=== PATIENT | female | born 1950 | race Caucasian/White ===

== ENCOUNTER 2016-10-12 18:41 | Inpatient (IN) ==
[~2016-10-12 18:41] MED LIST: *HR* Etomidate 20 MG/10 ML AMPUL IVP ONE; *HR* Midazolam HCl 5 MG/5 ML VIAL IVP ONE; *HR* Rocuronium Bromide 50 MG/5 ML VIAL IVC ONE
--- NOTE | 2016-10-12 19:06 | Emergency Department Note ---
START Narrative - START START: I examined this patient and my medical decision-making was reviewed with the TOOL MAKER/PA/Advanced Practice Nurse/Resident Physician. I agree with the documented findings, disposition and treatment plan as described except to the extent set forth below.
[2016-10-12] MEDS ORDERED: Ipratropium/Albuterol Neb 3 ML IH ONE ×2 (19:10→20:07)
[2016-10-12] MEDS ORDERED: Ipratropium/Albuterol Neb 3 ML ONE (19:12)
--- NOTE | 2016-10-12 19:14 | Emergency Department Note ---
Disposition Clinical Impression: Community acquired pneumonia, Hypoxia Leukocytosis Qualifiers: Leukocytosis type: unspecified Qualified Code(s): D72.829 - Elevated white blood cell count, unspecified Disposition: Admitted As Inpatient Condition: Fair Referrals: NO,PCP [Non-Partnered Physician] - Forms: ED Satisfaction Letter SOB HPI - General Chief Complaint: ED Shortness of Breath/Dyspnea Stated Complaint: BRIAN, dizzy Time Seen by Provider: 10/12/16 18:55 Source: patient, EMS Mode of arrival: EMS Limitations: no limitations Nursing Notes Reviewed: Yes Vital Signs Reviewed: Yes - History of Present Illness 66-year-old female history of diabetes, hypertension who presents to the ER via EMS due to dizziness. Patient reports that she has not felt well for the last 2 -3 days. She states that when she was standing up and walking around she felt dizzy like she was going to pass out. Family called EMS today because of how she was acting. Patient states that she has felt dizzy worse today with a headache. She denies any chest pain or shortness of breath. No recent illnesses, fevers, chills, cough. Upon arrival patient was hypoxic at 75%. Patient was placed on a nonrebreather with improvement to the low 90s. We will continue to monitor closely and will place the patient on BiPAP if continued hypoxia. Pt Subjective Complaint: shortness of breath Onset (ago): day(s) Severity: severe Consistency/Duration: constant Improves with: nothing Worsens with: nothing Associated symptoms: Reports: other (Dizziness). Denies: chest pain, fever, cough, lower extremity pain, nausea/vomiting Treatment prior to arrival: oxygen Cough present: No Sputum production: No - Related Data Home oxygen amount: none Home Medications Medication Instructions Recorded Confirmed Amlodipine [Amlodipine Besylate] 10 mg PO QAM 09/06/15 09/06/15 Cholecalciferol (Vitamin D3) 10,000 unit PO 2XW PRN 09/06/15 09/06/15 [Vitamin D3] GlipiZIDE XL (24 HR) [Glucotrol XL] 5 mg PO QPM 09/06/15 09/06/15 Hydrochlorothiazide 25 mg PO QAM 09/06/15 09/06/15 Levothyroxine [Synthroid] 100 mcg PO QAM 09/06/15 09/06/15 Metformin HCl [Fortamet] 500 mg PO BID 09/06/15 09/06/15 Metoprolol [Lopressor] 100 mg PO BID 09/06/15 09/06/15 Naproxen [Naprosyn] 500 mg PO BID 09/06/15 09/06/15 Potassium Chloride [Klor-Con 10 meq PO QAM 09/06/15 09/06/15 Sprinkle] Simvastatin [Zocor] 40 mg PO QPM 09/06/15 09/06/15 Previous Rx's Medication Instructions Recorded PredniSONE [Prednisone] 60 mg PO DAILY #18 tablet 09/07/15 Valacyclovir [Valtrex] 1,000 mg PO TID #18 tablet 09/07/15 Allergies Allergy/AdvReac Type Severity Reaction Status Date / Time benazepril Allergy Swelling Verified 09/06/15 14:23 of the Eye All systems ED: reviewed and negative except as stated. Constitutional: Denies: fever Cardiovascular: Denies: chest pain Respiratory: Reports: dyspnea. Denies: cough Gastrointestinal: Denies: abdominal pain, nausea, vomiting, diarrhea Neurological: Reports: headache, other (Dizziness) Past Medical History - Past Medical History Attestation: Yes The following information was validated with the patient. Source: patient Medical history: Reports: diabetes, hyperlipidemia, hypertension, thyroid disease Surgical history: Reports: no surgical history Psychiatric history: Reports: no psych history - Social History Smoking Status: Never smoker Alcohol use: Reports: none Drug use: Reports: none Physical Exam - General Limitations: no limitations General appearance: alert, in distress - Head Head exam: atraumatic, normocephalic, normal inspection - Eye Eye exam: Present: normal appearance, EOMI - ENT ENT exam: normal exam - Neck Neck exam: Present: normal inspection - Chest Chest inspection: Present: normal inspection, symmetric chest wall rise - Respiratory Respiratory exam: Present: other (Diminished breath sounds bilaterally) - Cardiovascular Cardiovascular exam: Present: regular rate, normal rhythm, normal heart sounds - Abdominal Exam Abdominal exam: Present: soft, Non-Tender. Absent: tenderness - Extremities Exam Extremities exam: Present: normal inspection, full ROM. Absent: pedal edema - Expanded Upper Extremity Exam Shoulder exam: Present: normal inspection, full ROM Arm exam: Present: normal inspection, full ROM Elbow exam: Present: normal inspection, full ROM Forearm/Wrist exam: Present: normal inspection, full ROM Hand exam: Present: normal inspection, full ROM - Expanded Lower Extremity Exam Hip/Pelvis exam: Present: normal inspection, full ROM Upper leg exam: Present: normal inspection, full ROM Knee exam: Present: normal inspection, full ROM Lower leg exam: Present: normal inspection, full ROM Ankle exam: Present: normal inspection, full ROM Foot/toe exam: Present: normal inspection, full ROM - Neurological Exam Neurological exam: Present: alert - Psychiatric Psychiatric exam: Present: normal affect, normal mood - Skin Skin exam: Present: warm, dry, intact, normal color Course Course Narrative: Patient seen and examined. Vital signs reviewed. She is hypoxic on room air at 75%. Patient was placed on a nonrebreather with improvement in the low 90s. ABG obtained a breathing treatment will be given. We will also get an EKG, chest x-ray, labs including troponin, d-dimer and carboxyhemoglobin. Continue to monitor closely. Disposition pending. - Reevaluation(s) Reevaluation #1: Discussed results of lab work and imaging with the patient. Her d-dimer was elevated and I discussed getting a CTA of the chest with her. She is agreeable. Vital Signs Temperature 97.7 F 10/12/16 18:48 Pulse Rate 75 10/12/16 18:48 Respiratory Rate 20 10/12/16 18:48 Blood Pressure 135/76 10/12/16 18:48 O2 Sat by Pulse Oximetry 60 L 10/12/16 18:48 Temperature 97.7 F 10/12/16 18:48 Pulse Rate 72 10/12/16 18:54 Respiratory Rate 24 10/12/16 20:45 Blood Pressure 135/76 10/12/16 18:54 O2 Sat by Pulse Oximetry 93 L 10/12/16 20:45 Oxygen Delivery Oxygen Delivery Non Rebreather Mask Shortness of Breath/Dyspnea - MDM Narrative Medical decision making narrative: 66-year-old female history of hypertension, hyperlipidemia, diabetes who presents to the ER via EMS due to hypoxia and dizziness. Here patient's EKG shows T-wave inversions that are unchanged from her previous. She was initially hypoxic in the 70s on room air which improved with a nonrebreather to the mid 90s. Her chest x-ray shows concern for multifocal pneumonia. Her d- dimer was elevated and a CTA was obtained which is read by radiology as no PE but scattered groundglass opacities consistent with her chest x-ray earlier. She has a white count of 18. Patient given a couple breathing treatments here. Treated for community acquired pneumonia with Rocephin and Zithromax. Admitted to the hospitalist service for further management. - Lab Data Lab results reviewed: Yes I reviewed the patient's lab results. Result diagrams: 10/12/16 19:00 10/12/16 19:00 Lab Results 10/12/16 10/12/16 10/12/16 Range/Units 18:57 19:00 19:00 WBC 18.1 H (4.3-11.1) K/mcL RBC 4.49 (3.82-4.97) M/mcL Hgb 9.8 L (11.5-15.4) g/dL Hct 33.0 L (35.3-44.9) % MCV 73.5 L (83.0-100.0) fL MCH 21.8 L (28.0-33.3) pg MCHC 29.7 L (31.6-35.5) g/dL RDW 16.5 H (11.5-14.5) % Plt Count 406 H (140-400) K/mcL MPV 9.6 (9.4-12.4) fL Immature Gran % 1.4 (0-4) % Seg Neutrophils % 89.9 % Lymphocytes % 2.9 % Monocytes % 4.5 % Eosinophils % 1.0 % Basophils % 0.3 % Neutrophils # 16.3 H (1.6-8.9) K/mcL Lymphocytes # 0.5 L (0.6-4.6) K/mcL Monocytes # 0.8 (0.0-1.3) K/mcL Eosinophils # 0.2 (0.0-0.6) K/mcL Basophils # 0.1 (0.0-0.2) K/mcL D-Dimer 836 H (0-500) ng/mLFEU ABG pH (7.32-7.45) pH Units ABG pCO2 (35-45) mmHg ABG pO2 (85-104) mmHg ABG HCO3 (21-27) mEQ/L ABG Total CO2 (20-26) mEq/L ABG O2 Saturation (95-98) % ABG Base Excess (-2.0 to 3.0) mEq/L Carboxyhemoglobin (0-5) % Blood Gas Modality Inspired O2 % Sodium (136-145) mEq/L Potassium (3.5-4.5) mEq/L Chloride (98-109) mEq/L Carbon Dioxide (19-29) mEq/L BUN (7-20) mg/dL Creatinine (0.57-1.11) mg/dL Est GFR ( Amer) (> 60) Est GFR (Non-Af Amer) (> 60) BUN/Creatinine Ratio (6-26) Glucose (70-99) mg/dL POC Glucose 189 H (58-89) Calculated Osmolality (280-300) Lactic Acid (0.5-2.2) mmol/L Calcium (8.6-10.8) mg/dL Troponin I (0-0.03) ng/mL B-Natriuretic Peptide (0-100) pg/mL 10/12/16 10/12/16 10/12/16 Range/Units 19:00 19:00 19:00 WBC (4.3-11.1) K/mcL RBC (3.82-4.97) M/mcL Hgb (11.5-15.4) g/dL Hct (35.3-44.9) % MCV (83.0-100.0) fL MCH (28.0-33.3) pg MCHC (31.6-35.5) g/dL RDW (11.5-14.5) % Plt Count (140-400) K/mcL MPV (9.4-12.4) fL Immature Gran % (0-4) % Seg Neutrophils % % Lymphocytes % % Monocytes % % Eosinophils % % Basophils % % Neutrophils # (1.6-8.9) K/mcL Lymphocytes # (0.6-4.6) K/mcL Monocytes # (0.0-1.3) K/mcL Eosinophils # (0.0-0.6) K/mcL Basophils # (0.0-0.2) K/mcL D-Dimer (0-500) ng/mLFEU ABG pH (7.32-7.45) pH Units ABG pCO2 (35-45) mmHg ABG pO2 (85-104) mmHg ABG HCO3 (21-27) mEQ/L ABG Total CO2 (20-26) mEq/L ABG O2 Saturation (95-98) % ABG Base Excess (-2.0 to 3.0) mEq/L Carboxyhemoglobin (0-5) % Blood Gas Modality Inspired O2 % Sodium 136 (136-145) mEq/L Potassium 4.1 (3.5-4.5) mEq/L Chloride 100 (98-109) mEq/L Carbon Dioxide 24 (19-29) mEq/L BUN 16 (7-20) mg/dL Creatinine 0.99 (0.57-1.11) mg/dL Est GFR ( Amer) > 60 (> 60) Est GFR (Non-Af Amer) 56 L (> 60) BUN/Creatinine Ratio 16 (6-26) Glucose 182 H (70-99) mg/dL POC Glucose (58-89) Calculated Osmolality 288 (280-300) Lactic Acid 2.0 (0.5-2.2) mmol/L Calcium 9.3 (8.6-10.8) mg/dL Troponin I 0.04 H* (0-0.03) ng/mL B-Natriuretic Peptide (0-100) pg/mL 10/12/16 10/12/16 Range/Units 19:00 19:05 WBC (4.3-11.1) K/mcL RBC (3.82-4.97) M/mcL Hgb (11.5-15.4) g/dL Hct (35.3-44.9) % MCV (83.0-100.0) fL MCH (28.0-33.3) pg MCHC (31.6-35.5) g/dL RDW (11.5-14.5) % Plt Count (140-400) K/mcL MPV (9.4-12.4) fL Immature Gran % (0-4) % Seg Neutrophils % % Lymphocytes % % Monocytes % % Eosinophils % % Basophils % % Neutrophils # (1.6-8.9) K/mcL Lymphocytes # (0.6-4.6) K/mcL Monocytes # (0.0-1.3) K/mcL Eosinophils # (0.0-0.6) K/mcL Basophils # (0.0-0.2) K/mcL D-Dimer (0-500) ng/mLFEU ABG pH 7.42 (7.32-7.45) pH Units ABG pCO2 41 (35-45) mmHg ABG pO2 67 L (85-104) mmHg ABG HCO3 26.6 (21-27) mEQ/L ABG Total CO2 27.9 H (20-26) mEq/L ABG O2 Saturation 93 L (95-98) % ABG Base Excess 1.9 (-2.0 to 3.0) mEq/L Carboxyhemoglobin 2.1 (0-5) % Blood Gas Modality NRB MASK Inspired O2 100 % Sodium (136-145) mEq/L Potassium (3.5-4.5) mEq/L Chloride (98-109) mEq/L Carbon Dioxide (19-29) mEq/L BUN (7-20) mg/dL Creatinine (0.57-1.11) mg/dL Est GFR ( Amer) (> 60) Est GFR (Non-Af Amer) (> 60) BUN/Creatinine Ratio (6-26) Glucose (70-99) mg/dL POC Glucose (58-89) Calculated Osmolality (280-300) Lactic Acid (0.5-2.2) mmol/L Calcium (8.6-10.8) mg/dL Troponin I (0-0.03) ng/mL B-Natriuretic Peptide 34 (0-100) pg/mL - Radiology Data Radiology results reviewed: Yes I reviewed the patient's radiology results. Chest X-Ray 10/12/16 18:55 IMPRESSION: Diffuse patchy bilateral airspace opacities may reflect multifocal pneumonia. Follow-up to resolution recommended. Stable cardiomegaly. D/ / 10/12/2016 19:31:29 Philip Magaña MD / Margarita Klein Interpreting Provider: Philip Magaña MD Chest CTA 10/12/16 19:57 IMPRESSION: Negative study for pulmonary embolism. Scattered airspace consolidations and mild surrounding ground-glass opacities to the lungs bilaterally correlating with findings on chest x-ray earlier today. These likely reflect multifocal infectious or inflammatory infiltrates. Follow-up to resolution recommended. D/ / 10/12/2016 20:49:00 Philip Magaña MD / Margarita Klein Interpreting Provider: Philip Magaña MD - EKG Data EKG attestation: Yes I reviewed and interpreted this EKG. EKG results narrative: EKG demonstrates normal sinus rhythm with a rate of 71 bpm. Normal axis. IN interval 155 QRS duration 98 QTc 11/22 T-wave inversions in leads V1 through V5, leads 3 unchanged from her previous EKG. No ST elevations or depressions. No acute ischemic findings. No significant changes from previous EKG dated 09/06/15. S.B.Andrea - [place] Situation: Demographics, MOA Background: Presenting Complaint, Relevant PMH, Meds, & Allergies Assessment: Vital Signs, Course and respsone to treatment, Exam Concerns, Patient/Family Expectation, Pertinant Lab Results, Outstanding Labs Recommendation: Barrier(s) to disposition, Recommendation based on pending studies, treatments, or consults S.B.A.Mari Report Given to: Dr. Jimmy Panchal Repor Time: 21:27
[2016-10-12 19:16] LABS: ABG Base Excess 1.9 mEq/L (-2.0 to 3.0); ABG HCO3 26.6 mEQ/L (21-27); ABG Oxygen Saturation 93 % (95-98); ABG PCO2 41 mmHg (35-45); ABG PH 7.42 pH Units (7.32-7.45); ABG PO2 67 mmHg (85-104); ABG TCO2 27.9 mEq/L (20-26); Carboxyhemoglobin 2.1 % (0-5)
[2016-10-12 19:17] LABS: Basophils # 0.1 K/mcL (0.0-0.2); Basophils % 0.3 %; Eosinophils # 0.2 K/mcL (0.0-0.6); Hemoglobin 9.8 g/dL (11.5-15.4); Immature Granulocytes % 1.4 % (0-4); Lymphocytes # 0.5 K/mcL (0.6-4.6); Lymphocytes % 2.9 %; Mean Corpuscular HGB Conc 29.7 g/dL (31.6-35.5); Mean Corpuscular Hemoglobin 21.8 pg (28.0-33.3); Mean Corpuscular Volume 73.5 fL (83.0-100.0); Mean Platelet Volume 9.6 fL (9.4-12.4); Monocytes # 0.8 K/mcL (0.0-1.3); Monocytes % 4.5 %; Neutrophils # 16.3 K/mcL (1.6-8.9); Platelet Count 406 K/mcL (140-400); Red Blood Count 4.49 M/mcL (3.82-4.97); Red Cell Distribution Width 16.5 % (11.5-14.5); Segmented Neutrophils % 89.9 %
[2016-10-12 19:19] LABS: Blood Gas FiO2 100 %
[2016-10-12 19:28] LABS: BUN/Creatinine Ratio 16 (6-26); Blood Urea Nitrogen 16 mg/dL (7-20); Calcium 9.3 mg/dL (8.6-10.8); Carbon Dioxide 24 mEq/L (19-29); Chloride 100 mEq/L (98-109); Glucose 182 mg/dL (70-99); Osmolality,Calculated 288 (280-300); Potassium 4.1 mEq/L (3.5-4.5); Sodium 136 mEq/L (136-145); eGFR For African Americans > 60 (> 60); eGFR For Non-African Americans 56 (> 60)
[2016-10-12] MEDS ORDERED: Azithromycin 500 MG in D5% in Water 250 ML IVPB ONE (20:07)
[2016-10-12] MEDS ORDERED: Furosemide 20 MG/2 ML VIAL IVP STA (23:37)
[2016-10-12] MEDS ORDERED: Naloxone 0.4 MG/ML INJ IVP PRN (23:48)
[2016-10-12] MEDS ORDERED: Ipratropium/Albuterol Neb 3 ML IH PRN (23:51)
--- NOTE | 2016-10-13 00:02 | Internal Med History&Physical ---
Date of Encounter: 10/12/16 Time of Encounter: 23:30 Assessment and Plan (1) Acute respiratory failure with hypoxemia Current visit: Yes Status: Acute I have personally reviewed the chest x-ray and CT scan of chest. The personal review, I suspect pulmonary edema (cardiogenic versus non-cardiogenic) more likely compared to pneumonia. A trial of Lasix given is given. BNP is not elevated. Will check CRP. Will repeat CXR in the morning. (2) Multifocal pneumonia Current visit: Yes Status: Acute Imaging reports multifocal pneumonia. But on my personal review of imaging, I suspect pulmonary edema (cardiogenic versus non-cardiogenic) is more likely. A trial of lasix. Check CRP. Repeat CXR. Will continue the antibiotics. check sputum cultures. Will get influenza screen. (3) DM2 (diabetes mellitus, type 2) Current visit: Yes Status: Chronic Start insulin sliding scale Qualifiers: Diabetes mellitus complication status: without complication Diabetes mellitus termination clerk insulin use: without fdc use Qualified Code(s): E11.9 - Type 2 diabetes mellitus without complications (4) HTN (hypertension) Current visit: Yes Status: Chronic Hold antihypertensive in the acute phase Qualifiers: Hypertension type: essential hypertension Qualified Code(s): I10 - Essential (primary) hypertension (5) Hypothyroidism Current visit: Yes Status: Chronic Continue synthroid Qualifiers: Hypothyroidism type: unspecified Qualified Code(s): E03.9 - Hypothyroidism , unspecified (6) Leukocytosis Current visit: Yes Status: Acute Likely secondary to stress response versus pneumonia. Monitor WBC count. Check CRP Qualifiers: Leukocytosis type: unspecified Qualified Code(s): D72.829 - Elevated white blood cell count, unspecified (7) DVT prophylaxis Current visit: Yes Status: Acute SubQ Heparin Internal Medicine - H&P: HPI Chief complaint: Shortness of breath Admitted From: Emergency Dept Plans for Post Hospital Care: Home History of present illness: Ms. Perez is a 66 year old female with history of diabetes, hypertension, hypothyroidism, hyperlipidemia - presents with 3 days h/o "not feeling well". She reports feeling dizzy. She reports her shortness of breath at rest. She reports a dry cough. She denies chest pain, fever, chills, nausea, vomiting. Denies abdominal pain, dysuria, hematuria, bowel problems or muscle aches. She reports contact with grandson, who had flu. She was evaluated in the emergency department and was noted to have acute respiratory failure with oxygen saturations in the 60's, which improved to 90% with non-rebreather mask. D- Dimer was elevated and the CTA chest was negative for pulmonary embolism. Imaging showed diffuse patchy bilateral airspace opacities, concerning for multifocal pneumonia and was given azithromycin and ceftriaxone. She is admitted to hospitalist service for further management. Past Med Surg Social Fam HX - Past Medical History Medical history: diabetes, hyperlipidemia, hypertension, thyroid disease Psychiatric history: no psych history - Past Surgical History Surgical History: no surgical history - Social History Smoking Status: Never smoker Alcohol use: none Drug use: none - Family History Father Living Status: Mother Living Status: Internal Medicine - H&P: Meds Amlodipine [Amlodipine Besylate] 10 mg PO QAM 09/06/15 [History] Cholecalciferol (Vitamin D3) [Vitamin D3] 10,000 unit PO MOFR 09/06/15 [History] GlipiZIDE XL (24 HR) [Glucotrol XL] 5 mg PO QPM 09/06/15 [History] Hydrochlorothiazide 25 mg PO QAM 09/06/15 [History] Levothyroxine [Synthroid] 100 mcg PO QAM 09/06/15 [History] Metformin HCl [Fortamet] 1,000 mg PO DAILY 09/06/15 [History] Metoprolol [Lopressor] 100 mg PO BID 09/06/15 [History] Potassium Chloride [Klor-Con Sprinkle] 10 meq PO QAM 09/06/15 [History] Simvastatin [Zocor] 40 mg PO QPM 09/06/15 [History] Naproxen Sodium [Naproxen Sodium] 550 mg PO BID 10/12/16 [History] Allergies benazepril Allergy (Verified 09/06/15 14:23) Swelling of the Eye PATIENT HAD LEFT FACIAL SWELLING- All Systems PM: A 10-system review of systems was performed and is negative for pertinent findings except as documented above in the HPI. - Constitutional Vitals: Temp Pulse Resp BP Pulse Ox 98.8 F 86 28 138/66 87 L 10/12/16 23:09 10/12/16 23:09 10/12/16 23:40 10/12/16 23:09 10/12/16 23:40 Exam: General: Tachypneic HEENT: Oral mucosa is moist. No conjunctival palor or scleral icterus Neck: No obvious neck swellings Lungs: Bilateral basal crackles present. Bronchial breathing at the left base Cardiac: Regular rate and rhythm. No significant murmurs Abdomen: Soft, non tender. Bowel sounds present Neurological: Alert and oriented. No gross localizing deficits Psych: Not aggressive or agitated Extremities: no significant leg edema Skin: No generalized rash Internal Med - H&P Results - Labs CBC & Chem 7: 10/12/16 19:00 10/12/16 19:00 - ABG Interpretation Interpretation: ABG interpreted by me Additional comments: Hypoxemia - EKG Data -: EKG Interpreted by Myself EKG shows normal: sinus rhythm Rate: normal - EKG Data EKG comments: T wave inversion in leads V1-V4 10/13/16 01:10 - Impressions ITS Impressions Chest X-Ray 10/12/16 18:55 IMPRESSION: Diffuse patchy bilateral airspace opacities may reflect multifocal pneumonia. Follow-up to resolution recommended. Stable cardiomegaly. D/ / 10/12/2016 19:31:29 Philip Magaña MD / Margartia Klein Interpreting Provider: Philip Magaña MD Chest CTA 10/12/16 19:57 IMPRESSION: Negative study for pulmonary embolism. Scattered airspace consolidations and mild surrounding ground-glass opacities to the lungs bilaterally correlating with findings on chest x-ray earlier today. These likely reflect multifocal infectious or inflammatory infiltrates. Follow-up to resolution recommended. D/ / 10/12/2016 20:49:00 Philip Magaña MD / Margarita Klein Interpreting Provider: Philip Magaña MD
[2016-10-13] MEDS ORDERED: *HR* Dextrose 50 % in Water (Syg) 50 ML SYRINGE IVP PRN (00:59)
[2016-10-13] MEDS ORDERED: Dextrose Gel 15 GM PO PRN ×2 (00:59)
[2016-10-13] MEDS ORDERED: D5% in Water 1,000 ML IV PRN (00:59)
[2016-10-13] MEDS ORDERED: *HR* LORazepam 2 MG/ML VIAL IVP ONE (01:47)
[2016-10-13] MEDS: *HR* Heparin 5,000 UNIT/ML VIAL SQ SCH ×3 (05:20→20:56)
[2016-10-13] MEDS ORDERED: *HR* Heparin 5,000 UNIT/ML VIAL SQ SCH (06:00)
[2016-10-13 06:44] LABS: Basophils # 0.1 K/mcL (0.0-0.2); Basophils % 0.3 %; Eosinophils # 0.1 K/mcL (0.0-0.6); Eosinophils % 0.3 %; Hematocrit 31.7 % (35.3-44.9); Hemoglobin 9.4 g/dL (11.5-15.4); Immature Granulocytes % 1.2 % (0-4); Lymphocytes # 0.7 K/mcL (0.6-4.6); Mean Corpuscular HGB Conc 29.7 g/dL (31.6-35.5); Mean Corpuscular Hemoglobin 21.7 pg (28.0-33.3); Monocytes # 0.6 K/mcL (0.0-1.3); Monocytes % 3.2 %; Neutrophils # 15.4 K/mcL (1.6-8.9); Nucleated Red Blood Cells 0.1 /100 WBC (0); Platelet Count 393 K/mcL (140-400); Red Blood Count 4.34 M/mcL (3.82-4.97); Red Cell Distribution Width 16.4 % (11.5-14.5)
[2016-10-13 06:53] LABS: ABG Base Excess 2.9 mEq/L (-2.0 to 3.0); ABG HCO3 27.9 mEQ/L (21-27); ABG Oxygen Saturation 94 % (95-98); ABG PCO2 44 mmHg (35-45); ABG PH 7.41 pH Units (7.32-7.45); ABG PO2 70 mmHg (85-104); ABG TCO2 29.3 mEq/L (20-26); Blood Gas FiO2 100 %
[2016-10-13 07:13] LABS: BUN/Creatinine Ratio 17 (6-26); Blood Urea Nitrogen 18 mg/dL (7-20); Carbon Dioxide 25 mEq/L (19-29); Chloride 98 mEq/L (98-109); Glucose 173 mg/dL (70-99); Magnesium 1.7 mg/dL (1.6-2.6); Osmolality,Calculated 290 (280-300); Potassium 3.7 mEq/L (3.5-4.5); Sodium 137 mEq/L (136-145); eGFR For African Americans > 60 (> 60); eGFR For Non-African Americans 54 (> 60)
[2016-10-13] MEDS ORDERED: Insulin LISPRO 300 UNITS/3 ML VIAL SQ SCH ×2 (07:30→21:00)
[2016-10-13] MEDS ORDERED: Aminoglycoside Consult 1 EACH MC ONE (07:43)
[2016-10-13] MEDS ORDERED: *HR* FentaNYL (PF) 100 MCG/2 ML VIAL ONE (08:20)
[2016-10-13] MEDS ORDERED: Lacri-Lube 3.5 GM TUBE BOTH EYES PRN (08:35)
[2016-10-13] MEDS ORDERED: *HR* FentaNYL (PF) 100 MCG/2 ML VIAL IVP ONE (08:39)
[2016-10-13] MEDS ORDERED: Vancomycin 1,500 MG in D5% in Water 250 ML IVPB ONE (08:52)
[2016-10-13] MEDS ORDERED: Metoprolol 100 MG TABLET PO SCH (09:00)
[2016-10-13 09:10] LABS: Bilirubin,Urine Negative (Negative); Blood,Urine Large (Negative); Clarity,Urine Clear (Clear); Color,Urine Yellow (Yellow); Glucose,Urine (UA) Normal (Normal); Ketones,Urine Negative (Negative); Leukocyte Esterase,Urine Negative (Negative); Nitrite,Urine Negative (Negative); PH,Urine 5.5 pH Units (5.0-8.0); Protein,Urine 100 mg/dL (Neg-Trace); Specific Gravity,Urine > 1.030 (1.010-1.025); Urobilinogen,Urine Normal (Normal)
[2016-10-13] MEDS ORDERED: 0.9 % Sodium Chloride 500 ML ONE (09:10)
[2016-10-13 09:13] LABS: Bacteria,Urine None Seen per hpf (None-Few); Squamous Epithelial Cell,Urine Many per lpf (None-Few); WBC,Urine 15-30 per hpf (0-3)
--- NOTE | 2016-10-13 09:18 | Pulmonology Consult Note ---
Date of Encounter: 10/13/16 Time of Encounter: 09:16 Assessment and Plan (1) Sepsis Current Visit: Yes Status: Acute Patient meets sepsis criteria with tachycardia, tachypnea, leukocytosis in the setting of multifocal airspace opacities. Community acquired pneumonia with unknown organism at this time. Lactic acid 2.0 MAP currently stable around 80. Influenza A/B/H1N1 negative. MRSA surveillance swab negative. Legionella and strep pneumococcal urine antigens negative. Continue Rocephin and Levaquin. Patient was given a one-time dose of vancomycin and Tamiflu prior to influenza swab. Plan for bronchoscopy with BAL. Qualifiers: Sepsis type: sepsis due to unspecified organism Qualified Code(s): A41.9 - Sepsis, unspecified organism (2) Acute respiratory failure with hypoxemia Current Visit: Yes Status: Acute Patient presented to the emergency department with an oxygen saturation of about 70%. She initially improved with nonrebreather, but ultimately required BiPAP and endotracheal intubation. Patient's PaO2/FiO2 ratio on BiPAP was 70 indicating severe ARDS. Etiology likely community-acquired pneumonia. Initially felt may be secondary to influenza due to sick contacts, but PCR negative. Bronchoscopy later this afternoon with BAL. Urine antigens negative. Continue ventilatory support with deep sedation and paralytic. (3) Community acquired pneumonia Current Visit: Yes Status: Acute Chest x-ray and CTA reveal multifocal airspace opacities. Current antibiotic regimen Rocephin and Levaquin. She was given a one-time dose of vancomycin. MRSA surveillance negative. Urine antigens negative. Influenza A/B/H1N1 negative. Bronchoscopy today with BAL. Continue ventilatory support with deep sedation. (4) DM2 (diabetes mellitus, type 2) Current Visit: Yes Status: Chronic Adi-smymcwc-yvodxkswq diabetes mellitus. Sliding scale insulin initiated. Qualifiers: Diabetes mellitus complication status: without complication Diabetes mellitus intermediate manager insulin use: without intermediate manager use Qualified Code(s): E11.9 - Type 2 diabetes mellitus without complications (5) HTN (hypertension) Current Visit: Yes Status: Chronic Patient's home antihypertensive medications have been held at this time. Mean arterial pressure stable around 80. Continue to monitor patient's blood pressure closely. Qualifiers: Hypertension type: essential hypertension Qualified Code(s): I10 - Essential (primary) hypertension (6) Hypothyroidism Current Visit: Yes Status: Chronic Synthroid converted to IV. Qualifiers: Hypothyroidism type: unspecified Qualified Code(s): E03.9 - Hypothyroidism , unspecified (7) DVT prophylaxis Current Visit: Yes Status: Acute Subcutaneous heparin. Right internal jugular CVC day #1 Rocephin and Levaquin day #2 Heparin/Protonix Trickle tube feeds initiated. History of Present Illness Consult date: 10/13/16 Requesting physician: Vandana Sierra Reason for consult: dyspnea, pneumonia, abnormal CXR/CT Chief complaint: shortness of breath History of present illness: Ms. Perez is a 66-year-old female with a past medical history of non-insulin- dependent diabetes mellitus, hypertension, hypothyroidism, and hyperlipidemia who presented to the emergency department with a chief complaint of shortness of breath, dizziness, and overall malaise. Patient stated that she had not been feeling well for approximately 2-3 days. She admits to dizziness upon standing along with nausea and vomiting. She admits to sick contacts at home likely with the flu. Upon arrival to the emergency department she was found to be hypoxic with an oxygen saturation of 75%. She was placed on nonrebreather with improvement to the low 90s and subsequently was placed on BiPAP due to decreasing oxygen saturation. Patient had an elevated d-dimer and a CTA was obtained which was negative for pulmonary emboli. Patient was diagnosed with community-acquired pneumonia and admitted with Rocephin and azithromycin. Patient was placed on BiPAP overnight, but unfortunately decompensated this a.m. and was transferred to the ICU. Chest x-ray was obtained prior to transfer which revealed multifocal airspace opacities increased from prior exam. Pattern may represent ARDS or pulmonary edema. On arrival to the ICU, patient was to Neck with a respiratory rate between 35 and 50. I discussed with her the need for intubation due to her lung injury as well as her work of breathing. She stated that she was not short of breath, but very anxious. He spoke with her who was in agreement with intubation and our plan of care. Past Med Surg Social Fam HX - Past Medical History Medical history: diabetes, hyperlipidemia, hypertension, thyroid disease Psychiatric history: no psych history - Past Surgical History Surgical History: no surgical history - Social History Smoking Status: Never smoker Alcohol use: none Drug use: none - Family History Father Living Status: Mother Living Status: Medications and Allergies Amlodipine [Amlodipine Besylate] 10 mg PO QAM 09/06/15 [History] Cholecalciferol (Vitamin D3) [Vitamin D3] 10,000 unit PO MOFR 09/06/15 [History] GlipiZIDE XL (24 HR) [Glucotrol XL] 5 mg PO QPM 09/06/15 [History] Hydrochlorothiazide 25 mg PO QAM 09/06/15 [History] Levothyroxine [Synthroid] 100 mcg PO QAM 09/06/15 [History] Metformin HCl [Fortamet] 1,000 mg PO DAILY 09/06/15 [History] Metoprolol [Lopressor] 100 mg PO BID 09/06/15 [History] Potassium Chloride [Klor-Con Sprinkle] 10 meq PO QAM 09/06/15 [History] Simvastatin [Zocor] 40 mg PO QPM 09/06/15 [History] Naproxen Sodium [Naproxen Sodium] 550 mg PO BID 10/12/16 [History] Allergies benazepril Allergy (Verified 09/06/15 14:23) Swelling of the Eye PATIENT HAD LEFT FACIAL SWELLING- All Systems: A 10-system review of systems was performed and is negative for pertinent findings except as documented above in the HPI. - Constitutional Constitutional: fatigue, headache(s) - EENT Nose, mouth and throat: dizziness - Respiratory Respiratory: dyspnea - Gastrointestinal Gastrointestinal: nausea, vomiting - Psychiatric Psychiatric: anxiety Physical Examination Vital Signs: Vital Signs, Last 4 Hours Temp Pulse Resp BP Pulse Ox 10/13/16 08:00 108 42 137/74 92 L 10/13/16 07:10 99.3 F 105 42 133/66 90 L 10/13/16 07:02 32 89 L 10/13/16 05:50 98.8 F 100 18 153/85 92 L General: Patient is alert, initially presented on BiPAP, very anxious; now intubated, sedated, and paralyzed HEENT: Normocephalic atraumatic, pupils are equal round and reactive to light and accommodation, tympanic membrane is intact, nares is patent, mucous membranes moist, throat is not injected, no JVD, trachea is midline Cardiovascular: Tachycardic with regular rhythm without murmur Respiratory: Lungs are diminished bilaterally with rhonchi noted right greater than left Abdomen: Soft, nontender, obese, positive bowel sounds in all 4 quadrants Extremities: Warm, dry, no edema Neuro: A&Ox3, speech is appropriate, cranial nerves II through XII are normal as tested prior to intubation Results - Laboratory Findings CBC and BMP: 10/13/16 05:17 10/13/16 05:17 ABG ABG pH 7.41 pH Units (7.32-7.45) 10/13/16 06:44 ABG pCO2 44 mmHg (35-45) 10/13/16 06:44 ABG pO2 70 mmHg (85-104) L 10/13/16 06:44 ABG O2 Saturation 94 % (95-98) L 10/13/16 06:44 PT/INR, D-dimer D-Dimer 836 ng/mLFEU (0-500) H 10/12/16 19:00 Abnormal lab findings: Abnormal lab results WBC 17.0 K/mcL (4.3-11.1) H 10/13/16 05:17 Hgb 9.4 g/dL (11.5-15.4) L 10/13/16 05:17 Hct 31.7 % (35.3-44.9) L 10/13/16 05:17 MCV 73.0 fL (83.0-100.0) L 10/13/16 05:17 MCH 21.7 pg (28.0-33.3) L 10/13/16 05:17 MCHC 29.7 g/dL (31.6-35.5) L 10/13/16 05:17 RDW 16.4 % (11.5-14.5) H 10/13/16 05:17 Neutrophils # 15.4 K/mcL (1.6-8.9) H 10/13/16 05:17 Nucleated RBCs/100 WBC 0.1 /100 WBC (0) H 10/13/16 05:17 D-Dimer 836 ng/mLFEU (0-500) H 10/12/16 19:00 ABG pO2 70 mmHg (85-104) L 10/13/16 06:44 ABG HCO3 27.9 mEQ/L (21-27) H 10/13/16 06:44 ABG Total CO2 29.3 mEq/L (20-26) H 10/13/16 06:44 ABG O2 Saturation 94 % (95-98) L 10/13/16 06:44 Est GFR (Non-Af Amer) 54 (> 60) L 10/13/16 05:17 Glucose 173 mg/dL (70-99) H 10/13/16 05:17 POC Glucose 182 (58-89) H 10/13/16 07:12 Troponin I 0.06 ng/mL (0-0.03) H* 10/13/16 05:17 C-Reactive Protein 136 mg/L (Less than 5) H 10/12/16 19:00 Ur Specific [place] > 1.030 (1.010-1.025) H 10/13/16 08:45 Urine Protein 100 mg/dL (Neg-Trace) H 10/13/16 08:45 Urine Blood Large (Negative) H 10/13/16 08:45 - Clinical Findings Intake & Output: Intake & Output 10/12/16 10/13/16 10/13/16 23:59 07:59 15:59 Intake Total 0 / 0 Output Total 950 / 950 Balance -950 / -950 Consult Discharge Plan - Plan Referrals: Syd Barclay MD [Primary Care Provider] -
[2016-10-13 09:19] LABS: ABG Base Excess 0.8 mEq/L (-2.0 to 3.0); ABG HCO3 28.9 mEQ/L (21-27); ABG Oxygen Saturation 92 % (95-98); ABG PCO2 66 mmHg (35-45); ABG PH 7.25 pH Units (7.32-7.45); ABG PO2 74 mmHg (85-104); ABG TCO2 30.9 mEq/L (20-26)
[2016-10-13] MEDS: Chlorhexidine Rinse 15 ML MOUTHWASH MM SCH ×2 (09:19→19:58)
[2016-10-13] MEDS: Lacri-Lube 3.5 GM TUBE BOTH EYES SCH ×4 (09:19→23:27)
[2016-10-13 09:20] LABS: Blood Gas FiO2 100 %
[2016-10-13] MEDS: Levothyroxine Sodium 100 MCG VIAL IVP SCH (09:20)
[2016-10-13] MEDS: Pantoprazole 40 MG VIAL IVP SCH (09:20)
[2016-10-13 09:22] LABS: RBC,Urine 15-30 per hpf (0-3); Yeast,Urine Few per hpf (None Seen)
[2016-10-13] MEDS: Atracurium 250 MG in 0.9 % Sodium Chloride 225 ML IVC SCH ×3 (09:39→23:12)
[2016-10-13] MEDS: FentaNYL (PF) 1,000 MCG in 0.9 % Sodium Chloride 80 ML IVC SCH ×2 (09:49→19:56)
[2016-10-13] MEDS: Vancomycin 1,500 MG in D5% in Water 250 ML IVPB SCH ×2 (10:24→20:56)
[2016-10-13 10:57] LABS: 2009 H1N1 PCR NOT DETECTED (Not Detect); Influenza A PCR Negative (Negative); Influenza B PCR Negative (Negative)
--- NOTE | 2016-10-13 11:46 | Procedure Note ---
Date of procedure: 10/13/16 Pre-op diagnosis: Multifocal pneumonia Post-op diagnosis: same Procedure: Central Venous Catheter (CVC, Central Line) Placement Date: 10/13/16 Time: 11:00 AM Indication: Hemodynamic monitoring/Intravenous access Resident: Dr. Earl Attending: Dr. Zavaleta A time-out was completed verifying correct patient, procedure, site, positioning , and special equipment if applicable. The patient was placed in a dependent position appropriate for central line placement based on the vein to be cannulated. The patients right neck was prepped and draped in sterile fashion. A triple lumen 7-Sloven[place] Cordis catheter was introduced into the internal jugular using the Seldinger technique under ultrasound guidance. The catheter was threaded smoothly over the guide wire and appropriate blood return was obtained. Each lumen of the catheter was evacuated of air and flushed with sterile saline. The catheter was then sutured in place to the skin and a sterile dressing applied. Perfusion to the extremity distal to the point of catheter insertion was checked and found to be adequate. Dr. Zavaleta was present for the entire procedure. Portable chest x-ray is pending at this time. Estimated Blood Loss: 10 cc The patient tolerated the procedure well and there were no complications. Anesthesia: IV sedation Surgeon: Duke Earl Softball Umpire: Ama Camacho Estimated blood loss (cc): 10 Pathology: none sent Condition: stable Disposition: ICU
[2016-10-13] MEDS: Insulin LISPRO 300 UNITS/3 ML VIAL SQ SCH ×3 (12:50→23:18)
[2016-10-13] MEDS: Norepinephrine 4 MG in D5% in Water 250 ML IVC SCH (13:48)
--- NOTE | 2016-10-13 13:54 | Procedure Note ---
Date of procedure: 10/13/16 Pre-op diagnosis: Septic shock Post-op diagnosis: same Procedure: Right radial arterial line placement The patient is a 66-year-old female in need of continuous direct blood pressure monitoring for hemodynamic instability and the need for arterial access for repeated blood sampling. Consent for procedure was obtained. The patient's skin was cleaned with chlorhexidine and a sterile drape was placed. The right radial artery was identified under ultrasound guidance. The Arrow catheter was advanced into the lumen of the artery until the syringe was seen to rapidly fell of bright red blood. The needle was then held in place while the guidewire was advanced. The needle and guidewire were then removed as the arterial catheter was advanced into proper position. Bright red pulsatile blood was seen from the catheter as the tubing was being connected. The catheter was stabilized and sutured to the skin. A good waveform was seen on the monitor. A sterile bio occlusive dressing was placed over the catheter including the insertion site. Complications: None Surgeon: Ama Camacho Transmitter Supervisor: Renan Zavaleta Condition: critical Disposition: ICU
[2016-10-13 14:19] LABS: ABG Base Excess 4.3 mEq/L (-2.0 to 3.0); ABG HCO3 31.7 mEQ/L (21-27); ABG Oxygen Saturation 97 % (95-98); ABG PCO2 63 mmHg (35-45); ABG PH 7.31 pH Units (7.32-7.45); ABG PO2 102 mmHg (85-104); ABG TCO2 33.6 mEq/L (20-26)
[2016-10-13 14:20] LABS: Blood Gas FiO2 100 %
[2016-10-13 14:21] LABS: Blood Gas PEEP 15 cm H2O
--- NOTE | 2016-10-13 15:50 | Electrocardiograph Report ---
[address] [place] [address] Test Date: 2016-10-12 Pat Name: Hope Perez Department: 103 Room: [facility] Gender: F Ex Assistant/Program Director: : 1950 Requested By: Juanpablo Alvarez Order Number: [id number] Reading MD: Nia Baer Measurements Intervals [place] Rate: 71 P: 22 NE: 155 QRS: -5 QRSD: 98 T: -7 QT: 397 QTc: 420 Interpretive Statements SINUS RHYTHM INFERIOR MYOCARDIAL INFARCTION, PROBABLY OLD MODERATE T-WAVE ABNORMALITY, CONSIDER ANTEROLATERAL ISCHEMIA Electronically Signed On 10-13-2016 15:48:46 EDT by Nia Baer
[2016-10-13] MEDS: methylPREDNISolone 125 MG/2 ML VIAL IVP SCH ×2 (18:26→23:19)
[2016-10-13] MEDS: Docusate Oral Soln 100 MG/10 ML UDC GTUBE SCH (19:58)
[2016-10-13] MEDS ORDERED: Levofloxacin 750 MG/150 ML 750 MG/150 ML BAG IVPB SCH (21:00)
[2016-10-14 03:43] LABS: ABG Base Excess -0.7 mEq/L (-2.0 to 3.0); ABG HCO3 26.6 mEQ/L (21-27); ABG Oxygen Saturation 94 % (95-98); ABG PCO2 58 mmHg (35-45); ABG PH 7.27 pH Units (7.32-7.45); ABG PO2 79 mmHg (85-104); ABG TCO2 28.4 mEq/L (20-26); Blood Gas FiO2 100 %
[2016-10-14] MEDS: Lacri-Lube 3.5 GM TUBE BOTH EYES SCH ×6 (03:43→23:27)
[2016-10-14 03:58] LABS: Basophils % 0.1 %; Eosinophils % 0.3 %; Hematocrit 24.6 % (35.3-44.9); Lymphocytes # 0.3 K/mcL (0.6-4.6); Lymphocytes % 2.6 %; Mean Corpuscular HGB Conc 29.3 g/dL (31.6-35.5); Mean Corpuscular Hemoglobin 22.2 pg (28.0-33.3); Mean Corpuscular Volume 75.7 fL (83.0-100.0); Monocytes # 0.2 K/mcL (0.0-1.3); Monocytes % 1.5 %; Neutrophils # 10.3 K/mcL (1.6-8.9); Platelet Count 316 K/mcL (140-400); Red Blood Count 3.25 M/mcL (3.82-4.97); Red Cell Distribution Width 16.2 % (11.5-14.5); Segmented Neutrophils % 93.5 %
[2016-10-14 04:06] LABS: Albumin 2.5 g/dL (3.5-5.0); Albumin/Globulin Ratio 0.6 (1.1-2.2); Bilirubin,Total 0.4 mg/dL (0.2-1.2); Calcium 8.3 mg/dL (8.6-10.8); Globulin 4.4 g/dL (2.4-3.5); Magnesium 1.7 mg/dL (1.6-2.6); Potassium 4.2 mEq/L (3.5-4.5); Total Protein 6.9 g/dL (6.0-8.3)
[2016-10-14 04:32] LABS: Hemoglobin 7.2 g/dL (11.5-15.4)
[2016-10-14] MEDS: Atracurium 250 MG in 0.9 % Sodium Chloride 225 ML IVC SCH ×4 (04:47→19:46)
[2016-10-14] MEDS: Levothyroxine Sodium 100 MCG VIAL IVP SCH (05:04)
[2016-10-14] MEDS: methylPREDNISolone 125 MG/2 ML VIAL IVP SCH ×4 (05:05→23:26)
[2016-10-14] MEDS: Insulin LISPRO 300 UNITS/3 ML VIAL SQ SCH ×4 (05:05→23:27)
[2016-10-14] MEDS: *HR* Heparin 5,000 UNIT/ML VIAL SQ SCH ×3 (05:10→20:40)
[2016-10-14] MEDS: FentaNYL (PF) 1,000 MCG in 0.9 % Sodium Chloride 80 ML IVC SCH ×3 (05:18→19:47)
[2016-10-14] MEDS: Chlorhexidine Rinse 15 ML MOUTHWASH MM SCH ×2 (08:02→19:45)
[2016-10-14] MEDS: Docusate Oral Soln 100 MG/10 ML UDC GTUBE SCH ×2 (08:02→19:45)
[2016-10-14] MEDS: Pantoprazole 40 MG VIAL IVP SCH (08:03)
--- NOTE | 2016-10-14 09:16 | Pulmonology Progress Note ---
Date of Encounter: 10/14/16 Time of Encounter: 07:00 Assessment and Plan (1) Sepsis Current Visit: Yes Status: Resolved Qualifiers: Sepsis type: sepsis due to unspecified organism Qualified Code(s): A41.9 - Sepsis, unspecified organism (2) Acute respiratory failure with hypoxemia Current Visit: Yes Status: Acute (3) ARDS (adult respiratory distress syndrome) Current Visit: Yes Status: Acute (4) Community acquired pneumonia Current Visit: Yes Status: Acute (5) Diffuse pulmonary alveolar hemorrhage Current Visit: Yes Status: Acute (6) NIKKIE (acute kidney injury) Current Visit: Yes Status: Acute (7) DM2 (diabetes mellitus, type 2) Current Visit: Yes Status: Chronic Qualifiers: Diabetes mellitus complication status: without complication Diabetes mellitus special police officer insulin use: without special police officer use Qualified Code(s): E11.9 - Type 2 diabetes mellitus without complications (8) HTN (hypertension) Current Visit: Yes Status: Chronic Qualifiers: Hypertension type: essential hypertension Qualified Code(s): I10 - Essential (primary) hypertension (9) Hypothyroidism Current Visit: Yes Status: Chronic Qualifiers: Hypothyroidism type: unspecified Qualified Code(s): E03.9 - Hypothyroidism , unspecified (10) DVT prophylaxis Current Visit: Yes Status: Acute Subjective Principal diagnosis: ARDS Interval history: Patient seen and examined at the bedside. Remains intubated, sedated, and paralyzed. Did well overnight per nursing staff. Required increase in Atracurium due to breath stacking and an episode of desaturation, but currently doing well on 90% FiO2. Family update at the bedside. Objective PUL Vital signs: Last Vital Signs Temp 98.1 F 10/14/16 07:44 Pulse 74 10/14/16 08:17 Resp 30 10/14/16 08:17 BP 127/56 10/14/16 08:17 Pulse Ox 95 10/14/16 08:17 General: Patient remains intubated, sedated, and paralyzed HEENT: Normocephalic atraumatic, pupils are equal round and reactive to light and accommodation, nares is patent, mucous membranes moist, endotracheal tube in place, no JVD, trachea is midline Cardiovascular: Regular rate and rhythm without murmur Respiratory: Lungs are diminished bilaterally with rhonchi noted right greater than left Abdomen: Soft, nondistended, positive bowel sounds in all 4 quadrants Extremities: Warm, dry, no edema Neuro: Unable to assess secondary to patient's mental status Ventilator Settings Ventilator Settings: Ventilator Settings, Last 8 Hours Ventilator Mode A/C Ventilator Mode A/C Ventilator Mode A/C Ventilator Mode A/C Ventilator Mode A/C Ventilator Mode A/C Ventilator Mode A/C Ventilator Mode A/C Ventilator Mode A/C Ventilator Mode A/C Ventilator Mode A/C Ventilator Mode A/C Ventilator Tidal Volume 325 Setting Ventilator Tidal Volume 325 Setting Ventilator Tidal Volume 325 Setting Ventilator Tidal Volume 325 Setting Ventilator Tidal Volume 325 Setting Ventilator Tidal Volume 325 Setting Ventilator Tidal Volume 325 Setting Ventilator Tidal Volume 325 Setting Ventilator Tidal Volume 325 Setting Ventilator Tidal Volume 335 Setting Ventilator Tidal Volume 335 Setting Ventilator Tidal Volume 325 Setting Ventilator Respiratory Rate 30 Setting Ventilator Respiratory Rate 30 Setting Ventilator Respiratory Rate 30 Setting Ventilator Respiratory Rate 30 Setting Ventilator Respiratory Rate 30 Setting Ventilator Respiratory Rate 30 Setting Ventilator Respiratory Rate 30 Setting Ventilator Respiratory Rate 30 Setting Ventilator Respiratory Rate 30 Setting Ventilator Respiratory Rate 30 Setting Ventilator Respiratory Rate 30 Setting Ventilator Respiratory Rate 30 Setting Actual Respiratory Rate 30 Actual Respiratory Rate 30 Actual Respiratory Rate 30 Actual Respiratory Rate 30 Actual Respiratory Rate 30 Actual Respiratory Rate 30 Actual Respiratory Rate 30 Actual Respiratory Rate 30 Actual Respiratory Rate 30 Actual Respiratory Rate 30 Actual Respiratory Rate 30 Positive End Expiratory 15 Pressure Positive End Expiratory 15 Pressure Positive End Expiratory 15 Pressure Positive End Expiratory 15 Pressure Positive End Expiratory 15 Pressure Positive End Expiratory 15 Pressure Positive End Expiratory 15 Pressure Positive End Expiratory 15 Pressure Positive End Expiratory 15 Pressure Positive End Expiratory 15 Pressure Positive End Expiratory 15 Pressure Positive End Expiratory 15 Pressure Peak Inspiratory Airway 36 Pressure Peak Inspiratory Airway 37 Pressure Peak Inspiratory Airway 36 Pressure Peak Inspiratory Airway 36 Pressure Peak Inspiratory Airway 35 Pressure Peak Inspiratory Airway 36 Pressure Peak Inspiratory Airway 36 Pressure Peak Inspiratory Airway 35 Pressure Peak Inspiratory Airway 38 Pressure Peak Inspiratory Airway 37 Pressure Peak Inspiratory Airway 36 Pressure Results - Laboratory Findings CBC and BMP: 10/14/16 03:45 10/14/16 03:45 ABG ABG pH 7.27 pH Units (7.32-7.45) L 10/14/16 03:32 ABG pCO2 58 mmHg (35-45) H 10/14/16 03:32 ABG pO2 79 mmHg (85-104) L 10/14/16 03:32 ABG O2 Saturation 94 % (95-98) L 10/14/16 03:32 PT/INR, D-dimer D-Dimer 836 ng/mLFEU (0-500) H 10/12/16 19:00 Abnormal lab findings: Abnormal lab results RBC 3.25 M/mcL (3.82-4.97) L 10/14/16 03:45 Hgb 7.2 g/dL (11.5-15.4) L D 10/14/16 03:45 Hct 24.6 % (35.3-44.9) L 10/14/16 03:45 MCV 75.7 fL (83.0-100.0) L 10/14/16 03:45 MCH 22.2 pg (28.0-33.3) L 10/14/16 03:45 MCHC 29.3 g/dL (31.6-35.5) L 10/14/16 03:45 RDW 16.2 % (11.5-14.5) H 10/14/16 03:45 Neutrophils # 10.3 K/mcL (1.6-8.9) H 10/14/16 03:45 Lymphocytes # 0.3 K/mcL (0.6-4.6) L 10/14/16 03:45 Nucleated RBCs/100 WBC 0.1 /100 WBC (0) H 10/13/16 05:17 D-Dimer 836 ng/mLFEU (0-500) H 10/12/16 19:00 ABG pH 7.27 pH Units (7.32-7.45) L 10/14/16 03:32 ABG pCO2 58 mmHg (35-45) H 10/14/16 03:32 ABG pO2 79 mmHg (85-104) L 10/14/16 03:32 ABG Total CO2 28.4 mEq/L (20-26) H 10/14/16 03:32 ABG O2 Saturation 94 % (95-98) L 10/14/16 03:32 Sodium 131 mEq/L (136-145) L 10/14/16 03:45 BUN 30 mg/dL (7-20) H D 10/14/16 03:45 Creatinine 1.70 mg/dL (0.57-1.11) H D 10/14/16 03:45 Est GFR ( Amer) 37 (> 60) L 10/14/16 03:45 Est GFR (Non-Af Amer) 30 (> 60) L 10/14/16 03:45 Glucose 231 mg/dL (70-99) H 10/14/16 03:45 POC Glucose 212 (58-89) H 10/13/16 23:03 Calcium 8.3 mg/dL (8.6-10.8) L 10/14/16 03:45 Troponin I 0.06 ng/mL (0-0.03) H* 10/13/16 05:17 C-Reactive Protein 136 mg/L (Less than 5) H 10/12/16 19:00 Albumin 2.5 g/dL (3.5-5.0) L 10/14/16 03:45 Globulin 4.4 g/dL (2.4-3.5) H 10/14/16 03:45 Albumin/Globulin Ratio 0.6 (1.1-2.2) L 10/14/16 03:45 Ur Specific [place] > 1.030 (1.010-1.025) H 10/13/16 08:45 Urine Protein 100 mg/dL (Neg-Trace) H 10/13/16 08:45 Urine Blood Large (Negative) H 10/13/16 08:45 Urine Microscopic RBC 15-30 per hpf (0-3) H 10/13/16 08:45 Urine Microscopic WBC 15-30 per hpf (0-3) H 10/13/16 08:45 Ur Squamous Epith Cells Many per lpf (None-Few) H 10/13/16 08:45 Urine Yeast Few per hpf (None Seen) H 10/13/16 08:45 Ur Culture Indicated? YES (NO) A 10/13/16 08:45 - Microbiology Findings Microbiology Findings: Microbiology, Last 48 Hours 10/13/16 08:45 Urine Culture - Final Urine,Clean Catch No growth. 10/13/16 17:45 Sputum Culture - Preliminary Sputum 10/13/16 08:45 Legionella Antigen - Final Urine,[place] Streptococcus pneumoniae Antigen (M - Final - Clinical Findings Intake & Output: Intake & Output 10/13/16 10/14/16 10/14/16 23:59 07:59 15:59 Intake Total 1571 / 1571 758 / 758 Output Total 100 / 100 200 / 200 Balance 1471 / 1471 558 / 558 Weight 102.5 kg Consult Discharge Plan - Plan Referrals: Syd Barclay MD [Primary Care Provider] -
--- NOTE | 2016-10-14 09:48 | ECHO - Doppler Report ---
Echocardiogram Name: Hope Perez Date of Study: 10/13/2016 Date: 1950 Ht: 63.0 in Medical Record#: [id number] Age: 66 Wt: 220.0 lb Gender: Female BSA: 2.01 Order #: [id number] Location: [facility] Room #: [facility] Reading Physician: Brenna Leal DO [employer] Saw Operator: Anitra Salcido RDCS Ordering Physician: Tracey Sierra MD Primary Physician: Syd Barclay MD Indications: Congestive heart failure Impressions: LVEF 55%. Normal left ventricular size and systolic function. Mild LV diastolic dysfunction. Normal right ventricular size and function. Mild tricuspid regurgitation. Left Ventricular Wall Motion: Rest Echo Findings All wall segments showed normal motion. Findings: Study Quality * Technically sub-optimal due to clinical status. ECG Findings * Normal sinus rhythm. Aortic Valve * No aortic regurgitation. * Aortic valve not well visualized. * No aortic stenosis. Mitral Valve * No mitral regurgitation. * Normal appearing structure. * No mitral stenosis. Tricuspid Valve * Tricuspid valve not well visualized. * Mild tricuspid regurgitation. * Estimated RA pressure is 3 mmHg. * Estimated RVSP is 39 mmHg. * No pulmonary hypertension. Pulmonic Valve * Pulmonic valve is not well visualized. * No pulmonic stenosis. * No pulmonic regurgitation. Pulmonary Artery * Pulmonary artery not well visualized. Left Ventricle * LVEF 55%. * Normal LV chamber size, wall thickness and function. * Mild left ventricular diastolic dysfunction. Right Ventricle * Normal right ventricular structure and function. Left Atrium * Normal left atrial size. Right Atrium * Normal right atrial size. Interatrial Septum * No evidence of PFO by color Doppler. IVC * Normal IVC dimensions and inspiratory collapse. Pericardium * There is no pericardial effusion present. Aorta * Normally sized aortic root. History Hypertension Diabetes Hypercholesteremia Measurements: BP: 104/ 50 2D Normal Values IVSd: 1.09 cm 0.6 - 1.0 cm LVIDd: 4.11 cm 3.7 - 5.6 cm LVPWd: 1.26 cm 0.6 - 1.1 cm LVIDs: 2.30 cm 1.5 - 3.6 cm AO: 2.40 cm < 4.0 cm LA: 2.40 cm 2.0 - 4.0cm %FS: 44.00 cm >25 % LVOT Diam: 2.00 cm LA volume: 32 Mitral Valve Peak E:.85 m/sec Peak A:1.05 m/sec E/A Ratio:0.8 Peak E' Lat Codey:6.74 cm/s Peak E' Med Codey:6.53 cm/s E/E' Lat Ratio:12.7 E/E' Med Ratio:13.1 LVOT Peak Codey:1.45 m/sec Mean Codey:.93 m/sec Peak Grad:8.00 mmHg Mean Grad:4.50 mmHg Aortic Valve Peak Codey:2.23 m/sec Mean Codey:1.43 m/sec Peak Grad:20.00 mmHg Mean Grad:10.00 mmHg Valve Area:2.20 cm2 Tricuspid Valve TV Regurg Peak Grad: 36.00mmHg TV Regurg Peak Codey: 3.00m/sec Updated by Brenna Leal on 10/14/2016 9:42:17 AM electronically signed on 10/14/2016 9:44:46 AM with status of Final Wall Motion [place]: 1=Normal, 2=Hypokinesis, 3=Akinesis, 4=Dyskinesis, 5=Aneurysmal, 6=Hyperkinetic, X=Not Visualized (Blank)=Missing
--- NOTE | 2016-10-14 11:29 | Procedure Note ---
Date of procedure: 10/14/16 Pre-op diagnosis: abnormal CT scan, chest Post-op diagnosis: same Procedure: Bronchoscopy note: A timeout was performed. The patient was sedated with continuous propofol and fentanyl drips in the ICU. The flexible bronchoscope was introduced into the airway via the endotracheal tube. The airways were grossly normal and without mucus or secretions. A bronchoalveolar lavage of the right middle lobe was performed. Sequential lavage revealed progressively bloody return, consistent with alveolar hemorrhage. The bronchoalveolar lavage was sent for cytology and microbiology ( aerobic culture, fungal culture, AFB smear and culture, and respiratory viral panel) evaluation After completing bronchoalveolar lavage, the scope was withdrawn. No apparent complications or untoward events. Anesthesia: IV sedation Surgeon: Renan Zavaleta Floor Scraper: Ama Camacho Estimated blood loss (cc): 0 Pathology: other (Cytology sent) Condition: critical Disposition: ICU
[2016-10-14 13:16] LABS: INR 1.3; Prothrombin Time 13.7 Seconds (9.4-12.1)
--- NOTE | 2016-10-14 13:19 | Event Note ---
Date of Encounter: 10/14/16 Time of Encounter: 13:16 Critical care attending note: The patient was seen and examined with the house staff. Full resident note to follow: 1. Acute respiratory failure with hypoxia 2. Pneumonia 3. Abnormal CT scan, chest 4. ARDS 5. Acute renal failure 6. Diffuse alveolar hemorrhage 66-year-old morbidly obese white female with a medical history significant for diabetes and hypertension who presents with acute hypoxic respiratory failure. Patient had a flulike prodrome prior to admission. Evaluation revealed CXR and CT scan with impressive bilateral infiltrates concerning for ARDS. Patient was BiPAP dependent with marginal oxygen saturation saturations on 100% FiO2, which prompted intubation. We will continue low tidal volume ventilation with a goal of 6 mL/kg of ideal body weight and plateau pressures less than 30 cm of water. Continue high PEEP strategy. Continue serial arterial blood gases and allow for permissive hypercapnia and hypoxia for a lung protective strategy. We have initiated continuous paralytics. Continue trickle tube feeds. Our goal is euvolemia in terms of volume status. Hold on diuresis given increased in Cr. Infectious workup thus far is negative. We will continue the treatment for severe community acquired pneumonia and follow culture data. Performed bronchoscopy with bronchoalveolar lavage 10/14/2016. Successive lavage of the right middle lobe revealed progressively bloody return, which is consistent with alveolar hemorrhage. I suspect this is secondary to diffuse alveolar damage, however pulmonary capillaritis (as seen in pulmonary renal syndromes and/or ANCA associated vasculitides) is also in the differential diagnosis. A bland alveolar hemorrhage due to heart failure seems less likely in this clinical setting. Due to a low clinical suspicion of an ANCA associated vasculitis, I will hold pulse dose steroids for now. Continue intravenous Solu-Medrol 60 mg IV every 6 hours. I have also initiated a serologic workup for further evaluation of alveolar hemorrhage. Total direct critical care time: 35 minutes
[2016-10-14 16:14] LABS: Hematocrit 23.4 % (35.3-44.9); Mean Corpuscular HGB Conc 29.9 g/dL (31.6-35.5); Mean Corpuscular Hemoglobin 22.2 pg (28.0-33.3); Mean Corpuscular Volume 74.1 fL (83.0-100.0); Mean Platelet Volume 9.5 fL (9.4-12.4); Nucleated Red Blood Cells 0.2 /100 WBC (0); Platelet Count 293 K/mcL (140-400); Red Blood Count 3.16 M/mcL (3.82-4.97); Red Cell Distribution Width 15.9 % (11.5-14.5)
[2016-10-14 17:09] LABS: Eosinophils # 0.1 K/mcL (0.0-0.6); Lymphocytes # 0.5 K/mcL (0.6-4.6); Monocytes # 0.6 K/mcL (0.0-1.3); Neutrophils # 8.8 K/mcL (1.6-8.9)
[2016-10-14 17:20] LABS: Calcium 7.9 mg/dL (8.6-10.8); Potassium 3.9 mEq/L (3.5-4.5)
[2016-10-14] MEDS: Norepinephrine 4 MG in D5% in Water 250 ML IVC SCH (17:31)
[2016-10-14] MEDS ORDERED: Furosemide 40 MG/4 ML VIAL IVP ONE (19:32)
[2016-10-15] MEDS: Atracurium 250 MG in 0.9 % Sodium Chloride 225 ML IVC SCH ×5 (00:30→21:24)
[2016-10-15] MEDS: FentaNYL (PF) 1,000 MCG in 0.9 % Sodium Chloride 80 ML IVC SCH ×5 (00:31→21:25)
[2016-10-15] MEDS: Lacri-Lube 3.5 GM TUBE BOTH EYES SCH ×6 (03:30→23:30)
[2016-10-15] MEDS: *HR* Heparin 5,000 UNIT/ML VIAL SQ SCH ×3 (05:00→21:07)
[2016-10-15] MEDS: methylPREDNISolone 125 MG/2 ML VIAL IVP SCH ×4 (05:00→23:30)
[2016-10-15] MEDS: Levothyroxine Sodium 100 MCG VIAL IVP SCH (05:02)
[2016-10-15 05:04] LABS: Basophils % 0.1 %; Eosinophils % 0.1 %; Hematocrit 21.3 % (35.3-44.9); Hemoglobin 6.4 g/dL (11.5-15.4); Immature Granulocytes % 5.6 % (0-4); Immature Platelets 3.6 % (1.1-6.1); Mean Corpuscular Hemoglobin 22.2 pg (28.0-33.3); Mean Platelet Volume 9.8 fL (9.4-12.4); Nucleated Red Blood Cells 0.8 /100 WBC (0); Platelet Count 309 K/mcL (140-400); Red Blood Count 2.88 M/mcL (3.82-4.97); Red Cell Distribution Width 15.9 % (11.5-14.5)
[2016-10-15] MEDS: Insulin LISPRO 300 UNITS/3 ML VIAL SQ SCH ×4 (05:28→20:57)
[2016-10-15 05:39] LABS: Large Platelets Present (Not Present); Lymphocytes # 0.6 K/mcL (0.6-4.6); Monocytes # 0.4 K/mcL (0.0-1.3); Neutrophils # 9.3 K/mcL (1.6-8.9); Platelet Estimate Normal (Normal)
[2016-10-15 05:39] LABS: Potassium 4.2 mEq/L (3.5-4.5)
[2016-10-15 05:49] LABS: ABG Base Excess 1.2 mEq/L (-2.0 to 3.0); ABG HCO3 27.7 mEQ/L (21-27); ABG Oxygen Saturation 96 % (95-98); ABG PCO2 55 mmHg (35-45); ABG PH 7.31 pH Units (7.32-7.45); ABG PO2 87 mmHg (85-104); ABG TCO2 29.4 mEq/L (20-26)
[2016-10-15 05:50] LABS: Blood Gas FiO2 70 %
[2016-10-15] MEDS ORDERED: Furosemide 20 MG/2 ML VIAL IVP ONE ×2 (07:47→13:16)
--- NOTE | 2016-10-15 08:14 | Pulmonology Progress Note ---
Date of Encounter: 10/15/16 Time of Encounter: 07:00 Assessment and Plan (1) Sepsis Current Visit: Yes Status: Resolved Patient presented to ICU with acute hypoxic respiratory failure. CXR and CT chest with bilateral pulmonary infiltrates. Initial PaO2/FiO2 ratio consistent with severe ARDS. Remains intubated, sedated, and paralyzed. Bedside bronchoscopy done yesterday revealed progressively bloody lavage return consistent with DAH. Serology workup pending. Continue low tidal volume/high PEEP ventilation strategy. Continue to wean FiO2 as tolerated. Q6h solu-medrol. Continue Levaquin q48h and Rocephin day #4. Infectious workup negative to this point, BAL pending. Hgb 6.4 today, will transfuse 2 units PRBCs with lasix treatment between and following. Tube feeds at goal with low residuals. Basal insulin initiated with sliding scale q4h. SQ Heparin for DVT ppx. Protonix IV. Qualifiers: Sepsis type: sepsis due to unspecified organism Qualified Code(s): A41.9 - Sepsis, unspecified organism (2) Acute respiratory failure with hypoxemia Current Visit: Yes Status: Acute (3) ARDS (adult respiratory distress syndrome) Current Visit: Yes Status: Acute (4) Community acquired pneumonia Current Visit: Yes Status: Acute (5) Diffuse pulmonary alveolar hemorrhage Current Visit: Yes Status: Acute (6) Microcytic anemia Current Visit: Yes Status: Acute (7) NIKKIE (acute kidney injury) Current Visit: Yes Status: Acute (8) DM2 (diabetes mellitus, type 2) Current Visit: Yes Status: Chronic Qualifiers: Diabetes mellitus complication status: without complication Diabetes mellitus nursing home insulin use: without terminal operator use Qualified Code(s): E11.9 - Type 2 diabetes mellitus without complications (9) HTN (hypertension) Current Visit: Yes Status: Chronic Qualifiers: Hypertension type: essential hypertension Qualified Code(s): I10 - Essential (primary) hypertension (10) Hypothyroidism Current Visit: Yes Status: Chronic Qualifiers: Hypothyroidism type: unspecified Qualified Code(s): E03.9 - Hypothyroidism , unspecified (11) DVT prophylaxis Current Visit: Yes Status: Acute Subjective Principal diagnosis: ARDS Interval history: Patient seen and examined at the bedside. Remains intubated, sedated, and paralyzed. Did well overnight per nursing staff. Currently doing well on 60% FiO2. Family update at the bedside. Bedside bronchoscopy done yesterday concerning for DAH. Labs currently pending. Will transfuse 2 units PRBCs for Hgb 6.4. Objective PUL Vital signs: Last Vital Signs Temp 97.1 F L 10/15/16 07:48 Pulse 57 10/15/16 06:00 Resp 30 10/15/16 07:43 BP 159/85 10/15/16 07:43 Pulse Ox 97 10/15/16 07:43 General: Patient intubated, sedated, and paralyzed HEENT: Normocephalic atraumatic, pupils are equal round and reactive to light and accommodation, nares is patent, mucous membranes moist, endotracheal tube in place, no JVD, trachea is midline Cardiovascular: Regular rate and rhythm without murmur Respiratory: Lungs are diminished bilaterally Abdomen: Soft, nondistended, positive bowel sounds in all 4 quadrants Extremities: Warm, dry, no edema Neuro: Unable to assess secondary to patient's mental status Ventilator Settings Ventilator Settings: Ventilator Settings, Last 8 Hours Ventilator Mode A/C Ventilator Mode A/C Ventilator Mode A/C Ventilator Mode A/C Ventilator Mode A/C Ventilator Tidal Volume 325 Setting Ventilator Tidal Volume 325 Setting Ventilator Tidal Volume 325 Setting Ventilator Tidal Volume 325 Setting Ventilator Tidal Volume 325 Setting Ventilator Respiratory Rate 30 Setting Ventilator Respiratory Rate 30 Setting Ventilator Respiratory Rate 30 Setting Ventilator Respiratory Rate 30 Setting Ventilator Respiratory Rate 30 Setting Actual Respiratory Rate 30 Actual Respiratory Rate 30 Actual Respiratory Rate 30 Actual Respiratory Rate 30 Actual Respiratory Rate 30 Positive End Expiratory 15 Pressure Positive End Expiratory 15 Pressure Positive End Expiratory 15 Pressure Positive End Expiratory 15 Pressure Positive End Expiratory 15 Pressure Peak Inspiratory Airway 35 Pressure Peak Inspiratory Airway 35 Pressure Peak Inspiratory Airway 35 Pressure Peak Inspiratory Airway 35 Pressure Peak Inspiratory Airway 35 Pressure Results - Laboratory Findings CBC and BMP: 10/15/16 04:30 10/15/16 02:06 ABG ABG pH 7.31 pH Units (7.32-7.45) L 10/15/16 04:30 ABG pCO2 55 mmHg (35-45) H 10/15/16 04:30 ABG pO2 87 mmHg (85-104) 10/15/16 04:30 ABG O2 Saturation 96 % (95-98) 10/15/16 04:30 PT/INR, D-dimer PT 13.7 Seconds (9.4-12.1) H 10/14/16 12:27 D-Dimer 836 ng/mLFEU (0-500) H 10/12/16 19:00 Abnormal lab findings: Abnormal lab results RBC 2.88 M/mcL (3.82-4.97) L 10/15/16 04:30 Hgb 6.4 g/dL (11.5-15.4) L 10/15/16 04:30 Hct 21.3 % (35.3-44.9) L 10/15/16 04:30 MCV 74.0 fL (83.0-100.0) L 10/15/16 04:30 MCH 22.2 pg (28.0-33.3) L 10/15/16 04:30 MCHC 30.0 g/dL (31.6-35.5) L 10/15/16 04:30 RDW 15.9 % (11.5-14.5) H 10/15/16 04:30 Immature Gran % 5.6 % (0-4) H 10/15/16 04:30 Neutrophils # 9.3 K/mcL (1.6-8.9) H 10/15/16 04:30 Nucleated RBCs/100 WBC 0.8 /100 WBC (0) H 10/15/16 04:30 Large Platelets Present (Not Present) A 10/15/16 04:30 PT 13.7 Seconds (9.4-12.1) H 10/14/16 12:27 APTT 25.0 Seconds (26.0-36.0) L 10/14/16 12:27 D-Dimer 836 ng/mLFEU (0-500) H 10/12/16 19:00 ABG pH 7.31 pH Units (7.32-7.45) L 10/15/16 04:30 ABG pCO2 55 mmHg (35-45) H 10/15/16 04:30 ABG HCO3 27.7 mEQ/L (21-27) H 10/15/16 04:30 ABG Total CO2 29.4 mEq/L (20-26) H 10/15/16 04:30 Sodium 132 mEq/L (136-145) L 10/15/16 02:06 BUN 46 mg/dL (7-20) H 10/15/16 02:06 Creatinine 1.52 mg/dL (0.57-1.11) H 10/15/16 02:06 Est GFR ( Amer) 42 (> 60) L 10/15/16 02:06 Est GFR (Non-Af Amer) 34 (> 60) L 10/15/16 02:06 BUN/Creatinine Ratio 30 (6-26) H 10/15/16 02:06 Glucose 252 mg/dL (70-99) H 10/15/16 02:06 POC Glucose 272 (58-89) H 10/15/16 04:54 Calcium 8.0 mg/dL (8.6-10.8) L 10/15/16 02:06 Troponin I 0.06 ng/mL (0-0.03) H* 10/13/16 05:17 C-Reactive Protein 136 mg/L (Less than 5) H 10/12/16 19:00 Albumin 2.5 g/dL (3.5-5.0) L 10/14/16 03:45 Globulin 4.4 g/dL (2.4-3.5) H 10/14/16 03:45 Albumin/Globulin Ratio 0.6 (1.1-2.2) L 10/14/16 03:45 Ur Specific [place] > 1.030 (1.010-1.025) H 10/13/16 08:45 Urine Protein 100 mg/dL (Neg-Trace) H 10/13/16 08:45 Urine Blood Large (Negative) H 10/13/16 08:45 Urine Microscopic RBC 15-30 per hpf (0-3) H 10/13/16 08:45 Urine Microscopic WBC 15-30 per hpf (0-3) H 10/13/16 08:45 Ur Squamous Epith Cells Many per lpf (None-Few) H 10/13/16 08:45 Urine Yeast Few per hpf (None Seen) H 10/13/16 08:45 Ur Culture Indicated? YES (NO) A 10/13/16 08:45 - Microbiology Findings Microbiology Findings: Microbiology, Last 48 Hours 10/13/16 17:45 Sputum Culture - Preliminary Sputum 10/13/16 08:45 Urine Culture - Final Urine,Clean Catch No growth. 10/13/16 08:45 Legionella Antigen - Final Urine,[place] Streptococcus pneumoniae Antigen (M - Final - Clinical Findings Intake & Output: Intake & Output 10/14/16 10/15/1610/15/17 23:59 07:59 15:59 Intake Total 777 / 777 1023 / 1023 Output Total 600 / 600 500 / 500 Balance 177 / 177 523 / 523 Weight 102.7 kg Consult Discharge Plan - Plan Referrals: Syd Barclay MD [Primary Care Provider] -
[2016-10-15] MEDS: Pantoprazole 40 MG VIAL IVP SCH (08:23)
[2016-10-15] MEDS: Chlorhexidine Rinse 15 ML MOUTHWASH MM SCH ×2 (08:23→20:56)
[2016-10-15] MEDS: Docusate Oral Soln 100 MG/10 ML UDC GTUBE SCH ×2 (08:23→20:55)
[2016-10-15] MEDS ORDERED: 0.9 % Sodium Chloride 250 ML ONE (09:31)
[2016-10-15] MEDS ORDERED: Insulin DETEMIR 100 UNIT/ML X5UNITS SQ ONE (10:35)
[2016-10-15 14:33] LABS: Hematocrit 30.2 % (35.3-44.9); Hemoglobin 9.2 g/dL (11.5-15.4)
[2016-10-15 19:17] LABS: APTT (LE Anticoag) 40 sec (32-48); Diluted Russell Viper Venom 32 sec (33-44); PT (LE-Anticoag) 13.8 sec (12.0-15.5)
[2016-10-15] MEDS ORDERED: Furosemide 40 MG/4 ML VIAL IVP ONE (20:00)
[2016-10-15] MEDS ORDERED: Levofloxacin 750 MG/150 ML 750 MG/150 ML BAG IVPB SCH (20:00)
[2016-10-15] MEDS ORDERED: Insulin DETEMIR 100 UNIT/ML X5UNITS SQ SCH (21:00)
[2016-10-16] MEDS: Insulin LISPRO 300 UNITS/3 ML VIAL SQ SCH ×3 (01:09→07:56)
[2016-10-16] MEDS: Atracurium 250 MG in 0.9 % Sodium Chloride 225 ML IVC SCH ×2 (02:22→07:55)
[2016-10-16] MEDS: FentaNYL (PF) 1,000 MCG in 0.9 % Sodium Chloride 80 ML IVC SCH ×3 (03:02→13:15)
[2016-10-16] MEDS: Lacri-Lube 3.5 GM TUBE BOTH EYES SCH ×3 (04:09→12:23)
[2016-10-16 04:13] LABS: Hematocrit 27.5 % (35.3-44.9); Hemoglobin 8.5 g/dL (11.5-15.4); Mean Corpuscular HGB Conc 30.9 g/dL (31.6-35.5); Mean Corpuscular Hemoglobin 23.4 pg (28.0-33.3); Mean Corpuscular Volume 75.5 fL (83.0-100.0); Mean Platelet Volume 9.5 fL (9.4-12.4); Nucleated Red Blood Cells 0.9 /100 WBC (0); Platelet Count 340 K/mcL (140-400); Red Blood Count 3.64 M/mcL (3.82-4.97); Red Cell Distribution Width 16.8 % (11.5-14.5)
[2016-10-16 04:24] LABS: ABG Base Excess 5.1 mEq/L (-2.0 to 3.0); ABG HCO3 31.2 mEQ/L (21-27); ABG Oxygen Saturation 95 % (95-98); ABG PCO2 54 mmHg (35-45); ABG PH 7.37 pH Units (7.32-7.45); ABG PO2 78 mmHg (85-104); ABG TCO2 32.9 mEq/L (20-26); Blood Gas FiO2 50 %
[2016-10-16 04:28] LABS: Calcium 7.8 mg/dL (8.6-10.8); Potassium 4.2 mEq/L (3.5-4.5)
[2016-10-16] MEDS: *HR* Heparin 5,000 UNIT/ML VIAL SQ SCH (04:56)
[2016-10-16] MEDS: Levothyroxine Sodium 100 MCG VIAL IVP SCH (04:56)
[2016-10-16] MEDS: methylPREDNISolone 125 MG/2 ML VIAL IVP SCH (04:57)
[2016-10-16 05:02] LABS: Neutrophils # 14.8 K/mcL (1.6-8.9); Platelet Estimate Normal (Normal)
[2016-10-16 05:03] LABS: Polychromasia 1+ (Not Present)
[2016-10-16 05:05] LABS: Anisocytosis 1+ (Not Present)
[2016-10-16] MEDS: Docusate Oral Soln 100 MG/10 ML UDC GTUBE SCH (07:56)
[2016-10-16] MEDS: Chlorhexidine Rinse 15 ML MOUTHWASH MM SCH (07:56)
[2016-10-16] MEDS: Pantoprazole 40 MG VIAL IVP SCH (07:57)
[2016-10-16 08:14] LABS: ANA IgG by ELISA DETECTED (None Detected); GBM IgG Multiplex Bead Assay 0 AU/mL (0-19); Glomerular Basement Memb IgG NEGATIVE (Negative); Myeloperoxidase Ab 45 AU/mL (0-19); Serine Protease-3 Antibody 0 AU/mL (0-19)
[2016-10-16 08:15] LABS: Complement Component 3 205 mg/dL (88-201); Complement Component 4 28 mg/dL (10-40)
--- NOTE | 2016-10-16 08:18 | Pulmonology Progress Note ---
Date of Encounter: 10/16/16 Time of Encounter: 08:00 Assessment and Plan (1) Sepsis Current Visit: Yes Status: Resolved Patient presented to ICU with acute hypoxic respiratory failure. CXR and CT chest with bilateral pulmonary infiltrates. Initial PaO2/FiO2 ratio consistent with severe ARDS. Remains intubated, sedated, and paralyzed. Bedside bronchoscopy done yesterday revealed progressively bloody lavage return consistent with DAH. Serology workup pending. Continue low tidal volume/high PEEP ventilation strategy. Continue to wean FiO2 as tolerated. Q6h solu-medrol. Attempt a net even to negative fluid balance. Continue Levaquin q48h and Rocephin day #4. Infectious workup negative to this point, including BAL. Tube feeds at goal with low residuals. Basal insulin initiated with sliding scale q4h. SQ Heparin for DVT ppx. Protonix IV. Qualifiers: Sepsis type: sepsis due to unspecified organism Qualified Code(s): A41.9 - Sepsis, unspecified organism (2) Acute respiratory failure with hypoxemia Current Visit: Yes Status: Acute (3) ARDS (adult respiratory distress syndrome) Current Visit: Yes Status: Acute (4) Community acquired pneumonia Current Visit: Yes Status: Acute (5) Diffuse pulmonary alveolar hemorrhage Current Visit: Yes Status: Acute (6) Microcytic anemia Current Visit: Yes Status: Acute (7) NIKKIE (acute kidney injury) Current Visit: Yes Status: Acute (8) DM2 (diabetes mellitus, type 2) Current Visit: Yes Status: Chronic Qualifiers: Diabetes mellitus complication status: without complication Diabetes mellitus termite technician insulin use: without assisted use Qualified Code(s): E11.9 - Type 2 diabetes mellitus without complications (9) HTN (hypertension) Current Visit: Yes Status: Chronic Qualifiers: Hypertension type: essential hypertension Qualified Code(s): I10 - Essential (primary) hypertension (10) Hypothyroidism Current Visit: Yes Status: Chronic Qualifiers: Hypothyroidism type: unspecified Qualified Code(s): E03.9 - Hypothyroidism , unspecified (11) DVT prophylaxis Current Visit: Yes Status: Acute Subjective Principal diagnosis: ARDS Interval history: Patient seen and examined at the bedside. Remains intubated, sedated, and paralyzed. Did well overnight per nursing staff. Currently doing well on 50% FiO2, PEEP lowered to 12. Objective PUL Vital signs: Last Vital Signs Temp 98.5 F 10/16/16 08:02 Pulse 70 10/16/16 08:00 Resp 30 10/16/16 08:00 BP 177/70 10/16/16 08:00 Pulse Ox 92 L 10/16/16 08:00 General: Patient intubated, sedated, and paralyzed HEENT: Normocephalic atraumatic, pupils are equal round and reactive to light and accommodation, nares is patent, mucous membranes moist, endotracheal tube in place, no JVD, trachea is midline Cardiovascular: Regular rate and rhythm without murmur Respiratory: Lungs are diminished bilaterally Abdomen: Soft, nondistended, positive bowel sounds in all 4 quadrants Extremities: Warm, dry, no edema Neuro: Unable to assess secondary to patient's mental status Ventilator Settings Ventilator Settings: Ventilator Settings, Last 8 Hours Ventilator Mode A/C Ventilator Mode A/C Ventilator Mode A/C Ventilator Mode A/C Ventilator Mode A/C Ventilator Mode A/C Ventilator Mode A/C Ventilator Mode A/C Ventilator Mode A/C Ventilator Mode A/C Ventilator Mode A/C Ventilator Mode A/C Ventilator Mode A/C Ventilator Tidal Volume 325 Setting Ventilator Tidal Volume 325 Setting Ventilator Tidal Volume 325 Setting Ventilator Tidal Volume 325 Setting Ventilator Tidal Volume 325 Setting Ventilator Tidal Volume 325 Setting Ventilator Tidal Volume 325 Setting Ventilator Tidal Volume 325 Setting Ventilator Tidal Volume 325 Setting Ventilator Tidal Volume 325 Setting Ventilator Tidal Volume 325 Setting Ventilator Tidal Volume 325 Setting Ventilator Tidal Volume 325 Setting Ventilator Respiratory Rate 30 Setting Ventilator Respiratory Rate 30 Setting Ventilator Respiratory Rate 30 Setting Ventilator Respiratory Rate 30 Setting Ventilator Respiratory Rate 30 Setting Ventilator Respiratory Rate 30 Setting Ventilator Respiratory Rate 30 Setting Ventilator Respiratory Rate 30 Setting Ventilator Respiratory Rate 30 Setting Ventilator Respiratory Rate 30 Setting Ventilator Respiratory Rate 30 Setting Ventilator Respiratory Rate 30 Setting Actual Respiratory Rate 30 Actual Respiratory Rate 30 Actual Respiratory Rate 30 Actual Respiratory Rate 30 Actual Respiratory Rate 30 Actual Respiratory Rate 30 Positive End Expiratory 12 Pressure Positive End Expiratory 30 Pressure Positive End Expiratory 15 Pressure Positive End Expiratory 15 Pressure Positive End Expiratory 15 Pressure Positive End Expiratory 15 Pressure Positive End Expiratory 15 Pressure Positive End Expiratory 15 Pressure Positive End Expiratory 15 Pressure Positive End Expiratory 15 Pressure Positive End Expiratory 15 Pressure Positive End Expiratory 15 Pressure Positive End Expiratory 15 Pressure Peak Inspiratory Airway 35 Pressure Peak Inspiratory Airway 33 Pressure Peak Inspiratory Airway 36 Pressure Peak Inspiratory Airway 35 Pressure Peak Inspiratory Airway 36 Pressure Peak Inspiratory Airway 34 Pressure Results - Laboratory Findings CBC and BMP: 10/16/16 03:57 10/16/16 03:57 ABG ABG pH 7.37 pH Units (7.32-7.45) 10/16/16 04:10 ABG pCO2 54 mmHg (35-45) H 10/16/16 04:10 ABG pO2 78 mmHg (85-104) L 10/16/16 04:10 ABG O2 Saturation 95 % (95-98) 10/16/16 04:10 PT/INR, D-dimer PT 13.7 Seconds (9.4-12.1) H 10/14/16 12:27 D-Dimer 836 ng/mLFEU (0-500) H 10/12/16 19:00 Abnormal lab findings: Abnormal lab results WBC 16.1 K/mcL (4.3-11.1) H D 10/16/16 03:57 RBC 3.64 M/mcL (3.82-4.97) L 10/16/16 03:57 Hgb 8.5 g/dL (11.5-15.4) L 10/16/16 03:57 Hct 27.5 % (35.3-44.9) L 10/16/16 03:57 MCV 75.5 fL (83.0-100.0) L 10/16/16 03:57 MCH 23.4 pg (28.0-33.3) L 10/16/16 03:57 MCHC 30.9 g/dL (31.6-35.5) L 10/16/16 03:57 RDW 16.8 % (11.5-14.5) H 10/16/16 03:57 Immature Gran % 5.6 % (0-4) H 10/15/16 04:30 Myelocytes % 2.0 % (0) H 10/16/16 03:57 Neutrophils # 14.8 K/mcL (1.6-8.9) H 10/16/16 03:57 Nucleated RBCs/100 WBC 0.9 /100 WBC (0) H 10/16/16 03:57 Large Platelets Present (Not Present) A 10/15/16 04:30 Polychromasia 1+ (Not Present) A 10/16/16 03:57 Anisocytosis 1+ (Not Present) A 10/16/16 03:57 PT 13.7 Seconds (9.4-12.1) H 10/14/16 12:27 APTT 25.0 Seconds (26.0-36.0) L 10/14/16 12:27 D-Dimer 836 ng/mLFEU (0-500) H 10/12/16 19:00 Dil Jacob Viper Venom 32 sec (33-44) L 10/14/16 12:27 ABG pCO2 54 mmHg (35-45) H 10/16/16 04:10 ABG pO2 78 mmHg (85-104) L 10/16/16 04:10 ABG HCO3 31.2 mEQ/L (21-27) H 10/16/16 04:10 ABG Total CO2 32.9 mEq/L (20-26) H 10/16/16 04:10 ABG Base Excess 5.1 mEq/L (-2.0 to 3.0) H 10/16/16 04:10 BUN 52 mg/dL (7-20) H 10/16/16 03:57 Creatinine 1.36 mg/dL (0.57-1.11) H 10/16/16 03:57 Est GFR ( Amer) 47 (> 60) L 10/16/16 03:57 Est GFR (Non-Af Amer) 39 (> 60) L 10/16/16 03:57 BUN/Creatinine Ratio 38 (6-26) H 10/16/16 03:57 Glucose 201 mg/dL (70-99) H 10/16/16 03:57 POC Glucose 243 (58-89) H 10/16/16 07:13 Calculated Osmolality 304 (280-300) H 10/16/16 03:57 Calcium 7.8 mg/dL (8.6-10.8) L 10/16/16 03:57 Troponin I 0.06 ng/mL (0-0.03) H* 10/13/16 05:17 C-Reactive Protein 136 mg/L (Less than 5) H 10/12/16 19:00 Albumin 2.5 g/dL (3.5-5.0) L 10/14/16 03:45 Globulin 4.4 g/dL (2.4-3.5) H 10/14/16 03:45 Albumin/Globulin Ratio 0.6 (1.1-2.2) L 10/14/16 03:45 Ur Specific [place] > 1.030 (1.010-1.025) H 10/13/16 08:45 Urine Protein 100 mg/dL (Neg-Trace) H 10/13/16 08:45 Urine Blood Large (Negative) H 10/13/16 08:45 Urine Microscopic RBC 15-30 per hpf (0-3) H 10/13/16 08:45 Urine Microscopic WBC 15-30 per hpf (0-3) H 10/13/16 08:45 Ur Squamous Epith Cells Many per lpf (None-Few) H 10/13/16 08:45 Urine Yeast Few per hpf (None Seen) H 10/13/16 08:45 Ur Culture Indicated? YES (NO) A 10/13/16 08:45 CATIA Screen DETECTED (None Detected) A 10/14/16 12:27 Myeloperoxidase Ab 45 AU/mL (0-19) H 10/14/16 12:27 Complement C3 205 mg/dL (88-201) H 10/14/16 12:27 Tot Complement (CH50) 216 Units (60-144) H 10/14/16 12:27 - Microbiology Findings Microbiology Findings: Microbiology, Last 48 Hours 10/13/16 17:45 Sputum Culture - Final Sputum 10/14/16 11:20 Bronchoalveolar Lavage Culture - Preliminary Right Middle Lobe Lung No growth. 10/14/16 11:20 Respiratory Virus Culture - Preliminary Right Middle Lobe Lung 10/14/16 11:20 Acid Fast Stain - Final Right Middle Lobe Lung 10/13/16 08:45 Urine Culture - Final Urine,Clean Catch No growth. - Clinical Findings Intake & Output: Intake & Output 10/15/16 10/16/16 10/16/16 23:59 07:59 15:59 Intake Total 973 / 973 1315 / 1315 Output Total 600 / 600 1675 / 1675 200 / 200 Balance 373 / 373 -360 / -360 -200 / -200 Weight 106.231 kg Consult Discharge Plan - Plan Referrals: Syd Barclay MD [Primary Care Provider] -
[2016-10-16] MEDS ORDERED: Furosemide 40 MG/4 ML VIAL IVP ONE (08:32)
[2016-10-16 08:33] LABS: Ionized Calcium 1.04 mmol/L (1.15-1.35)
[2016-10-16 08:35] LABS: Magnesium 2.3 mg/dL (1.6-2.6)
[2016-10-16] MEDS ORDERED: Cholecalciferol (D-3) 1,000 UNIT TABLET PO SCH (09:00)
[2016-10-16] MEDS ORDERED: Calcium Gluconate 1,000 MG in D5% in Water 100 ML IVPB ONE (09:28)
[2016-10-16] MEDS ORDERED: Insulin LISPRO 300 UNITS/3 ML VIAL SQ SCH ×2 (09:29→10:31)
[2016-10-16] MEDS ORDERED: Furosemide 40 MG/4 ML VIAL IVP SCH ×2 (09:30→15:30)
[2016-10-16] MEDS ORDERED: methylPREDNISolone 125 MG/2 ML VIAL IVP SCH (10:30)
[2016-10-16] MEDS ORDERED: methylPREDNISolone 250 MG in 0.9 % Sodium Chloride 50 ML IVPB SCH (11:00)
--- NOTE | 2016-10-16 11:08 | Discharge Summary ---
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 (4) Microcytic anemia Priority: Secondary Status: Acute (5) NIKKIE (acute kidney injury) Priority: Secondary Status: Acute (6) DM2 (diabetes mellitus, type 2) Priority: Secondary Status: Chronic Qualifiers: Diabetes mellitus complication status: without complication Diabetes mellitus usp insulin use: without long line teamster use Qualified Code(s): E11.9 - Type 2 diabetes mellitus without complications (7) HTN (hypertension) Priority: Secondary Status: Chronic Qualifiers: Hypertension type: essential hypertension Qualified Code(s): I10 - Essential (primary) hypertension (8) Hypothyroidism Priority: Secondary Status: Chronic Qualifiers: Hypothyroidism type: unspecified Qualified Code(s): E03.9 - Hypothyroidism , unspecified - Discharge Medications Home Medications: Amlodipine [Amlodipine Besylate] 10 mg PO QAM 09/06/15 [History] Cholecalciferol (Vitamin D3) [Vitamin D3] 10,000 unit PO MOFR 09/06/15 [History] GlipiZIDE XL (24 HR) [Glucotrol XL] 5 mg PO QPM 09/06/15 [History] Hydrochlorothiazide 25 mg PO QAM 09/06/15 [History] Levothyroxine [Synthroid] 100 mcg PO QAM 09/06/15 [History] Metformin HCl [Fortamet] 1,000 mg PO DAILY 09/06/15 [History] Metoprolol [Lopressor] 100 mg PO BID 09/06/15 [History] Potassium Chloride [Klor-Con Sprinkle] 10 meq PO QAM 09/06/15 [History] Simvastatin [Zocor] 40 mg PO QPM 09/06/15 [History] Chlorhexidine Rinse 15 ml MM BID mouthwash 10/16/16 [Rx] Dextrose 50 % in Water (Syg) [Dextrose 50% (Syg)] 25 ml IVP AD PRN #0 syringe [Rx] Dextrose Gel [Gluctose] 15 gm PO ONCE PRN #0 gel..gram. 10/16/16 [Rx] Dextrose Gel [Gluctose] 30 gm PO ONCE PRN #0 gel..gram. 10/16/16 [Rx] Docusate [Colace] 100 mg GTUBE BID udc 10/16/16 [Rx] Furosemide [Lasix] 40 mg IVP Q6H vial 10/16/16 [Rx] Glucagon, Human Recombinant [Glucagen] 1 mg IM ONCE PRN #0 vial 10/16/16 [Rx] Heparin 5,000 unit SQ Q8HCO vial 10/16/16 [Rx] HydrALAZINE 10 mg IVP Q6HR PRN #0 vial 10/16/16 [Rx] Insulin DETEMIR [Levemir] 10 unit SQ HS [id number] 10/16/16 [Rx] Insulin LISPRO [HumaLOG] 0 units SQ Q4HR vial 10/16/16 [Rx] Ipratropium/Albuterol Neb [Duoneb] 3 ml IH [id number] PRN #0 inhsol 10/16/16 [Rx] Lacri-Lube [Lacri-lube] 1 appl BOTH EYES Q2HR PRN #0 tube 10/16/16 [Rx] Lacri-Lube [Lacri-lube] 1 appl BOTH EYES Q4H tube 10/16/16 [Rx] Levothyroxine Sodium [Synthroid] 50 mcg IVP 0630 vial 10/16/16 [Rx] MethylPREDNISolone [Solu-MEDROL] 250 mg IVP Q6HR vial 10/16/16 [Rx] Naloxone [Narcan] 0.4 mg IVP Q2MIN PRN #0 inj 10/16/16 [Rx] Pantoprazole [Protonix] 40 mg IVP DAILY vial 10/16/16 [Rx] Sennosides [Senna] 8.8 mg GTUBE BID udc 10/16/16 [Rx] Allergies/Adverse Reactions: Allergies benazepril Allergy (Verified 09/06/15 14:23) Swelling of the Eye PATIENT HAD LEFT FACIAL SWELLING- Labs on day of discharge: Labs from last 24 hours 10/16/16 10/16/16 10/16/16 07:20 07:13 04:24 WBC RBC Hgb Hct MCV MCH MCHC RDW Plt Count MPV Seg Neutrophils % Band Neutrophils % Lymphocytes % Myelocytes % Neutrophils # Lymphocytes # Nucleated RBCs/100 WBC Platelet Estimate Polychromasia Anisocytosis Heparin Neutralization Thrombin Time Plt Neutralization Lupus Anticoag INR Lupus Anticoag aPTT LA PTT Mix Pt/Norm 1:1 Dil Jacob Viper Venom LA dRVVT Confirm dRVVT Mix LA Reptilase Time Hexag Phospholip Neutrl Lupus Anticoag Interp ABG pH ABG pCO2 ABG pO2 ABG HCO3 ABG Total CO2 ABG O2 Saturation ABG Base Excess Blood Gas Modality Inspired O2 Sodium Potassium Chloride Carbon Dioxide BUN Creatinine Est GFR ( Amer) Est GFR (Non-Af Amer) BUN/Creatinine Ratio Glucose POC Glucose 243 H 215 H Calculated Osmolality Calcium Ionized Calcium 1.04 L Magnesium 2.3 CATIA Screen Myeloperoxidase Ab Anti-ds DNA IgG Ab Beta-2-GPI IgG Ab Beta-2-GPI IgA Ab Beta-2-GPI IgM Ab Glomerular Base Mem IgG Glomer Base Mem IgG IFA Serine Protease 3 Ab Anti-Cardiolipin IgG Ab Anti-Cardiolipin IgA Ab Anti-Cardiolipin IgM Ab Complement C3 Complement C4 Tot Complement (CH50) Blood Type Antibody Screen Crossmatch 10/16/16 10/16/16 10/16/16 04:10 03:57 03:57 WBC 16.1 H D RBC 3.64 L Hgb 8.5 L Hct 27.5 L MCV 75.5 L MCH 23.4 L MCHC 30.9 L RDW 16.8 H Plt Count 340 MPV 9.5 Seg Neutrophils % 90.0 Band Neutrophils % 2.0 Lymphocytes % 6.0 Myelocytes % 2.0 H Neutrophils # 14.8 H Lymphocytes # 1.0 Nucleated RBCs/100 WBC 0.9 H Platelet Estimate Normal Polychromasia 1+ A Anisocytosis 1+ A Heparin Neutralization Thrombin Time Plt Neutralization Lupus Anticoag INR Lupus Anticoag aPTT LA PTT Mix Pt/Norm 1:1 Dil Jacob Viper Venom LA dRVVT Confirm dRVVT Mix LA Reptilase Time Hexag Phospholip Neutrl Lupus Anticoag Interp ABG pH 7.37 ABG pCO2 54 H ABG pO2 78 L ABG HCO3 31.2 H ABG Total CO2 32.9 H ABG O2 Saturation 95 ABG Base Excess 5.1 H Blood Gas Modality ac Inspired O2 50 Sodium 137 Potassium 4.2 Chloride 100 Carbon Dioxide 25 BUN 52 H Creatinine 1.36 H Est GFR ( Amer) 47 L Est GFR (Non-Af Amer) 39 L BUN/Creatinine Ratio 38 H Glucose 201 H POC Glucose Calculated Osmolality 304 H Calcium 7.8 L Ionized Calcium Magnesium CATIA Screen Myeloperoxidase Ab Anti-ds DNA IgG Ab Beta-2-GPI IgG Ab Beta-2-GPI IgA Ab Beta-2-GPI IgM Ab Glomerular Base Mem IgG Glomer Base Mem IgG IFA Serine Protease 3 Ab Anti-Cardiolipin IgG Ab Anti-Cardiolipin IgA Ab Anti-Cardiolipin IgM Ab Complement C3 Complement C4 Tot Complement (CH50) Blood Type Antibody Screen Crossmatch 10/16/16 10/15/16 10/15/16 00:43 20:00 15:10 WBC RBC Hgb Hct MCV MCH MCHC RDW Plt Count MPV Seg Neutrophils % Band Neutrophils % Lymphocytes % Myelocytes % Neutrophils # Lymphocytes # Nucleated RBCs/100 WBC Platelet Estimate Polychromasia Anisocytosis Heparin Neutralization Thrombin Time Plt Neutralization Lupus Anticoag INR Lupus Anticoag aPTT LA PTT Mix Pt/Norm 1:1 Dil Jacob Viper Venom LA dRVVT Confirm dRVVT Mix LA Reptilase Time Hexag Phospholip Neutrl Lupus Anticoag Interp ABG pH ABG pCO2 ABG pO2 ABG HCO3 ABG Total CO2 ABG O2 Saturation ABG Base Excess Blood Gas Modality Inspired O2 Sodium Potassium Chloride Carbon Dioxide BUN Creatinine Est GFR ( Amer) Est GFR (Non-Af Amer) BUN/Creatinine Ratio Glucose POC Glucose 196 H 211 H 207 H Calculated Osmolality Calcium Ionized Calcium Magnesium CATIA Screen Myeloperoxidase Ab Anti-ds DNA IgG Ab Beta-2-GPI IgG Ab Beta-2-GPI IgA Ab Beta-2-GPI IgM Ab Glomerular Base Mem IgG Glomer Base Mem IgG IFA Serine Protease 3 Ab Anti-Cardiolipin IgG Ab Anti-Cardiolipin IgA Ab Anti-Cardiolipin IgM Ab Complement C3 Complement C4 Tot Complement (CH50) Blood Type Antibody Screen Crossmatch 10/15/16 10/15/16 10/15/16 14:19 11:44 07:45 WBC RBC Hgb 9.2 L D Hct 30.2 L MCV MCH MCHC RDW Plt Count MPV Seg Neutrophils % Band Neutrophils % Lymphocytes % Myelocytes % Neutrophils # Lymphocytes # Nucleated RBCs/100 WBC Platelet Estimate Polychromasia Anisocytosis Heparin Neutralization Thrombin Time Plt Neutralization Lupus Anticoag INR Lupus Anticoag aPTT LA PTT Mix Pt/Norm 1:1 Dil Jacob Viper Venom LA dRVVT Confirm dRVVT Mix LA Reptilase Time Hexag Phospholip Neutrl Lupus Anticoag Interp ABG pH ABG pCO2 ABG pO2 ABG HCO3 ABG Total CO2 ABG O2 Saturation ABG Base Excess Blood Gas Modality Inspired O2 Sodium Potassium Chloride Carbon Dioxide BUN Creatinine Est GFR ( Amer) Est GFR (Non-Af Amer) BUN/Creatinine Ratio Glucose POC Glucose 240 H Calculated Osmolality Calcium Ionized Calcium Magnesium CATIA Screen Myeloperoxidase Ab Anti-ds DNA IgG Ab Beta-2-GPI IgG Ab Beta-2-GPI IgA Ab Beta-2-GPI IgM Ab Glomerular Base Mem IgG Glomer Base Mem IgG IFA Serine Protease 3 Ab Anti-Cardiolipin IgG Ab Anti-Cardiolipin IgA Ab Anti-Cardiolipin IgM Ab Complement C3 Complement C4 Tot Complement (CH50) Blood Type B POSITIVE Antibody Screen NEGATIVE Crossmatch See Detail 10/14/16 12:27 WBC RBC Hgb Hct MCV MCH MCHC RDW Plt Count MPV Seg Neutrophils % Band Neutrophils % Lymphocytes % Myelocytes % Neutrophils # Lymphocytes # Nucleated RBCs/100 WBC Platelet Estimate Polychromasia Anisocytosis Heparin Neutralization NOT APPLICABLE Thrombin Time NOT APPLICABLE Plt Neutralization NOT APPLICABLE Lupus Anticoag INR 13.8 Lupus Anticoag aPTT 40 LA PTT Mix Pt/Norm 1:1 NOT APPLICABLE Dil Jacob Viper Venom 32 L LA dRVVT Confirm NOT APPLICABLE dRVVT Mix NOT APPLICABLE LA Reptilase Time NOT APPLICABLE Hexag Phospholip Neutrl NOT APPLICABLE Lupus Anticoag Interp SEE NOTE ABG pH ABG pCO2 ABG pO2 ABG HCO3 ABG Total CO2 ABG O2 Saturation ABG Base Excess Blood Gas Modality Inspired O2 Sodium Potassium Chloride Carbon Dioxide BUN Creatinine Est GFR ( Amer) Est GFR (Non-Af Amer) BUN/Creatinine Ratio Glucose POC Glucose Calculated Osmolality Calcium Ionized Calcium Magnesium CATIA Screen DETECTED A Myeloperoxidase Ab 45 H Anti-ds DNA IgG Ab NONE DETECTED Beta-2-GPI IgG Ab 0 Beta-2-GPI IgA Ab 4 Beta-2-GPI IgM Ab 1 Glomerular Base Mem IgG 0 Glomer Base Mem IgG IFA NEGATIVE Serine Protease 3 Ab 0 Anti-Cardiolipin IgG Ab 8 Anti-Cardiolipin IgA Ab 1 Anti-Cardiolipin IgM Ab 6 Complement C3 205 H Complement C4 28 Tot Complement (CH50) 216 H Blood Type Antibody Screen Crossmatch Preliminary micro results at discharge 10/14/16 11:20 Bronchoalveolar Lavage Culture - Preliminary Right Middle Lobe Lung No growth. 10/14/16 11:20 Respiratory Virus Culture - Preliminary Right Middle Lobe Lung - Impressions ITS Impressions Chest X-Ray 10/13/16 05:00 IMPRESSION: Cardiomegaly and multifocal airspace opacities, increased from prior exam. Pattern may represent ARDS or pulmonary edema. Multifocal pneumonia would be considered less likely. D/ / Wade Rao MD / Wade Rao MD Interpreting Provider: Wade Rao MD Chest X-Ray 10/13/16 08:35 IMPRESSION: 1. Endotracheal tube in appropriate position 4.4 cm above the [place]. 2. Stable diffuse airspace disease consistent with ARDS. No effusion or pneumothorax. 3. Enteric tube in the stomach with the tip at the level of the distal gastric body. D/ 10/13/2016 09:27:53 Jeffery Shepherd MD / jose Interpreting Provider: Jeffery Shepherd MD X-Ray 10/13/16 08:36 IMPRESSION: 1. Endotracheal tube in appropriate position 4.4 cm above the [place]. 2. Stable diffuse airspace disease consistent with ARDS. No effusion or pneumothorax. 3. Enteric tube in the stomach with the tip at the level of the distal gastric body. D/ / 10/13/2016 09:27:53 Jeffery Shepherd MD / jose Interpreting Provider: Jeffery Shepherd MD Chest X-Ray 10/13/16 11:39 IMPRESSION: 1. Interval placement of right internal jugular central venous catheter with the tip overlying the distal SVC. No pneumothorax. 2. Endotracheal tube tip is approximately 4.1 cm above the [place]. 3. Otherwise stable chest. D/ / Tiffanie Mendez MD / Tiffanie Mendez MD Interpreting Provider: Tiffanie Mendez MD Chest X-Ray 10/14/16 04:00 IMPRESSION: Unchanged chest. D/ / 10/14/2016 07:31:08 Ramon Sevilla MD / marc Interpreting Provider: Ramon Sevilla MD Chest X-Ray 10/15/16 04:00 IMPRESSION: Stable appearance of the chest with underlying ARDS. D/ / Wade Rao MD / Wade Rao MD Interpreting Provider: Wade Rao MD Chest X-Ray 10/16/16 04:00 IMPRESSION: No significant change in the chest. D/ / Wade Rao MD / Wade Rao MD Interpreting Provider: Wade Rao MD Date of admission: 10/12/16 23:40 Primary care physician: Syd Barclay MD Consults: 10/13/16 05:58 Consult to Pulmonology [CONS] Routine Consulting Provider: [facility] [place] Reason for Consult: Acute respratory failure Call Completed: No 10/13/16 08:50 Consult to Nutrition [CONS] Routine Comment: Trickle feeds please Consulting Provider: NUTRITION Reason for Dietary Consult: TF Start and Manage Discharging clinician: Ama Camacho Anticipated date of discharge: 10/16/16 - Patient Status Disposition: Transfer Critical Access Hosp Condition: Critical Functional capacity at discharge: bed bound Overall status at discharge: patient is not back to baseline - Discharge Instructions Follow Up With: Syd Barclay MD [Primary Care Provider] - - Time Spent with Patient Total time spent providing and/or coordinating discharge services: Greater than 30 minutes Physical Examination Vital Signs: Vital Signs, Last 4 Hours Temp Pulse Resp BP Pulse Ox 10/16/16 10:00 68 30 152/66 93 L 10/16/16 09:00 90 30 204/79 94 L 10/16/16 08:02 98.5 F 10/16/16 08:00 70 30 177/70 92 L 10/16/16 07:58 30 94 L 10/16/16 07:53 70 General: Patient is intubated, sedated, and paralyzed HEENT: NC/AT, PERRLA, nares patent, mucous membranes moist, endotracheal tube in place, no JVD, trachea midline CV: RRR without murmur, rubs, or gallops Respiratory: Lungs are diminished bilaterally without rales, rhonchi, or wheezes Abdomen: Soft, obese, nondistended, minimal bs noted Extremities: Trace LE edema Neuro: Unable to access secondary to the patients mental status
[2016-10-16] MEDS ORDERED: Atracurium 250 MG in 0.9 % Sodium Chloride 225 ML IVC SCH (11:15)
[2016-10-16] MEDS ORDERED: *HR* Metoprolol 5 MG/5 ML VIAL IVP ONE ×2 (11:27→11:29)
[2016-10-16 12:42] VITALS: BP 163/65
[2016-10-17 07:21] LABS: ANA IgG IFA Titer <1:40 (<1:40)
== END 2016-10-16 13:23 | disposition critical access hospital (66) | DRG 871 ==
LOC: EMEROO 18:41 → 2NENU 18:41 → ICNU 10-13 07:19
PROVIDERS: ADMIT Hospitalist; ATTEND Internal Medicine

== ENCOUNTER 2021-01-18 16:47 | Inpatient (IN) ==
[~2021-01-18 16:47] MED LIST changes: -*HR* Etomidate 20 MG/10 ML AMPUL IVP ONE; -*HR* Midazolam HCl 5 MG/5 ML VIAL IVP ONE; -*HR* Rocuronium Bromide 50 MG/5 ML VIAL IVC ONE; +cefTRIAXone 1,000 MG in 0.9 % Sodium Chloride Mini Bag 100 ML IVPB SCH
[2021-01-18] MEDS ORDERED: Ipratropium/Albuterol Neb 3 ML ONE (17:02)
[2021-01-18] MEDS ORDERED: Furosemide 40 MG/4 ML VIAL IVP ONE (17:06)
[2021-01-18] MEDS ORDERED: Ipratropium/Albuterol Neb 3 ML IH ONE (17:06)
[2021-01-18] MEDS ORDERED: methylPREDNISolone 125 MG/2 ML VIAL IVP ONE (17:06)
[2021-01-18] MEDS ORDERED: Nitroglycerin 0.4 MG TAB.SUBL SL ONE (17:14)
[2021-01-18 17:34] LABS: Basophils # 0.1 K/mcL (0.0-0.2); Basophils % 0.6 %; Eosinophils # 0.6 K/mcL (0.0-0.6); Eosinophils % 4.5 %; Hematocrit 52.7 % (35.3-44.9); Hemoglobin 15.6 g/dL (11.5-15.4); Lymphocytes # 0.7 K/mcL (0.6-4.6); Lymphocytes % 5.5 %; Mean Corpuscular HGB Conc 29.6 g/dL (31.6-35.5); Mean Corpuscular Hemoglobin 32.3 pg (28.0-33.3); Mean Corpuscular Volume 109.1 fL (83.0-100.0); Mean Platelet Volume 9.3 fL (9.4-12.4); Monocytes # 0.7 K/mcL (0.0-1.3); Monocytes % 5.9 %; Neutrophils # 10.1 K/mcL (1.6-8.9); Platelet Count 284 K/mcL (140-400); Red Blood Count 4.83 M/mcL (3.82-4.97); Red Cell Distribution Width 19.9 % (11.5-14.5); Segmented Neutrophils % 81.5 %; White Blood Count 12.4 K/mcL (4.3-11.1)
[2021-01-18 17:34] LABS: ABG Base Excess 0 mEq/L (-2 to 3); ABG HCO3 29 mEq/L (21-27); ABG Oxygen Saturation 87 % (95-98); ABG PCO2 62 mmHg (35-45); ABG PH 7.28 pH Units (7.32-7.45); ABG PO2 61 mmHg (85-104); ABG TCO2 31 mEq/L (20-26); Blood Gas Modality ASSIST CONTROL
[2021-01-18 17:43] LABS: Prothrombin Time 12.1 Seconds (9.4-12.1)
[2021-01-18 17:46] LABS: Activated Partial Thrombo Time 27.9 Seconds (26.0-36.0)
[2021-01-18] MEDS ORDERED: Nitroglycerin 1 INCH/GM PACKET TP ONE (17:48)
[2021-01-18 17:54] LABS: Alanine Aminotransferase 14 Units/L (7-52); Albumin 4.1 g/dL (3.5-5.7); Albumin/Globulin Ratio 1.3 (1.1-2.2); Alkaline Phosphatase 138 Units/L (34-104); Aspartate Amino Transferase 15 Units/L (13-39); BUN/Creatinine Ratio 20 (6-26); Bilirubin,Direct 0.1 mg/dL (0.0-0.2); Bilirubin,Indirect 0.4 mg/dL (0.0-1.0); Bilirubin,Total 0.5 mg/dL (0.3-1.0); Blood Urea Nitrogen 27 mg/dL (8-23); Carbon Dioxide 29 mEq/L (23-29); Chloride 102 mEq/L (98-107); Glucose 141 mg/dL (70-105); Osmolality,Calculated 295 (280-300); Potassium 4.3 mEq/L (3.5-5.1); Sodium 139 mEq/L (136-145); Total Protein 7.3 g/dL (6.4-8.9); eGFR For African Americans 48 (> 60); eGFR For Non-African Americans 39 (> 60)
[2021-01-18 17:55] LABS: Globulin 3.2 g/dL (2.4-3.5); Troponin I < 0.03 ng/mL (< 0.04)
[2021-01-18] MEDS ORDERED: Isovue-370 500 ML BOTTLE IVP ONE (18:04)
[2021-01-18 18:30] LABS: Bilirubin,Urine Negative (Negative); Blood,Urine Negative (Negative); Clarity,Urine Clear (Clear); Color,Urine Yellow (Yellow); Glucose,Urine (UA) Normal (Normal); Ketones,Urine Negative (Negative); Leukocyte Esterase,Urine Negative (Negative); Nitrite,Urine Negative (Negative); PH,Urine 5.5 pH Units (5.0-8.0); Protein,Urine Trace mg/dL (Neg-Trace); Specific Gravity,Urine 1.017 (1.010-1.025); Urobilinogen,Urine Normal (Normal)
[2021-01-18] MEDS ORDERED: Azithromycin 250 MG TABLET PO ONE (18:31)
[2021-01-18] MEDS ORDERED: cefTRIAXone 1,000 MG in 0.9 % Sodium Chloride Mini Bag 100 ML IVPB ONE (18:31)
[2021-01-18] MEDS ORDERED: Naloxone 0.4 MG/ML INJ IVP PRN (21:40)
[2021-01-18] MEDS ORDERED: *HR* Heparin 5,000 UNIT/ML VIAL SQ SCH (22:00)
[2021-01-18 22:02] LABS: Adenovirus Not Detected (Not Detect); Bordetella Pertussis Not Detected (Not Detect); Chlamydophila pneumoniae Not Detected (Not Detect); Coronavirus 229E Not Detected (Not Detect); Coronavirus HKU1 Not Detected (Not Detect); Coronavirus NL63 Not Detected (Not Detect); Coronavirus OC43 Not Detected (Not Detect); Human Metapneumovirus Not Detected (Not Detect); Human Rhinovirus/Enterovirus Not Detected (Not Detect); Influenza A Subtype 2009 H1 Not Detected (Not Detect); Influenza B Not Detected (Not Detect); Mycoplasma pneumoniae Not Detected (Not Detect); Parainfluenza Virus 1 Not Detected (Not Detect); Parainfluenza Virus 2 Not Detected (Not Detect); Parainfluenza Virus 3 Not Detected (Not Detect); Parainfluenza Virus 4 Not Detected (Not Detect); Respiratory Syncytial Virus Not Detected (Not Detect); SARS-CoV-2 Not Detected (Not Detect)
[2021-01-19] MEDS: Ipratropium/Albuterol Neb 3 ML IH SCH ×8 (00:11→23:01)
[2021-01-19] MEDS: Acetylcysteine 10% 2 ML INHSOL IH SCH ×5 (00:11→19:52)
[2021-01-19 01:58] LABS: Hematocrit 51.4 % (35.3-44.9); Hemoglobin 15.1 g/dL (11.5-15.4); Mean Corpuscular HGB Conc 29.4 g/dL (31.6-35.5); Mean Corpuscular Hemoglobin 32.5 pg (28.0-33.3); Mean Corpuscular Volume 110.8 fL (83.0-100.0); Mean Platelet Volume 9.4 fL (9.4-12.4); Platelet Count 245 K/mcL (140-400); Red Blood Count 4.64 M/mcL (3.82-4.97); Red Cell Distribution Width 19.7 % (11.5-14.5); White Blood Count 15.2 K/mcL (4.3-11.1)
[2021-01-19 02:14] LABS: ABG Base Excess -1 mEq/L (-2 to 3); ABG HCO3 32 mEq/L (21-27); ABG Oxygen Saturation 90 % (95-98); ABG PCO2 94 mmHg (35-45); ABG PH 7.14 pH Units (7.32-7.45); ABG PO2 79 mmHg (85-104); ABG TCO2 35 mEq/L (20-26)
[2021-01-19] MEDS ORDERED: *HR* LORazepam 2 MG/ML VIAL IVP ONE (02:36)
[2021-01-19] MEDS ORDERED: *HR* LORazepam 2 MG/ML VIAL ONE (02:38)
[2021-01-19] MEDS ORDERED: Perflutren Lipid Microsphere 1.3 ML in 0.9 % Sodium Chloride 8.7 ML IVP PRN ×2 (03:33→19:41)
[2021-01-19] MEDS ORDERED: Dextrose Gel 15 GM/37.5 ML TUBE PO PRN ×2 (03:48)
[2021-01-19] MEDS ORDERED: D5% in Water 1,000 ML IVC PRN (03:48)
[2021-01-19] MEDS ORDERED: *HR* Dextrose 50 % in Water (Vial) 50 ML VIAL IVP PRN (03:48)
[2021-01-19] MEDS: Insulin DETEMIR 100 UNIT/ML X5UNITS SUBQ SCH ×2 (04:27→20:05)
[2021-01-19 04:52] LABS: Calcium 8.1 mg/dL (8.6-10.3); Potassium 5.6 mEq/L (3.5-5.1)
[2021-01-19] MEDS: Nystatin POWDER 30 GM BOTTLE TP SCH ×4 (04:53→21:22)
[2021-01-19] MEDS ORDERED: methylPREDNISolone 125 MG/2 ML VIAL IVP SCH (06:00)
[2021-01-19] MEDS: Insulin LISPRO 300 UNITS/3 ML VIAL SUBQ SCH ×3 (06:07→17:14)
[2021-01-19 06:48] LABS: ABG Base Excess -1 mEq/L (-2 to 3); ABG HCO3 27 mEq/L (21-27); ABG Oxygen Saturation 99 % (95-98); ABG PCO2 58 mmHg (35-45); ABG PH 7.28 pH Units (7.32-7.45); ABG PO2 134 mmHg (85-104); ABG TCO2 29 mEq/L (20-26); Blood Gas Modality ASSIST CONTROL; Blood Gas VT 480 cc
[2021-01-19] MEDS ORDERED: *HR* Dextrose 50 % in Water (Vial) 50 ML VIAL IVP ONE (07:20)
[2021-01-19] MEDS ORDERED: Insulin Human Regular 10 UNIT in 0.9 % Sodium Chloride 10 ML IV ONE (07:20)
[2021-01-19] MEDS ORDERED: Furosemide 40 MG/4 ML VIAL IVP SCH ×2 (08:00→09:00)
[2021-01-19] MEDS: Azithromycin 500 MG in 0.9 % Sodium Chloride 250 ML IVPB SCH (08:34)
[2021-01-19] MEDS: Famotidine 20 MG TABLET PO SCH ×2 (08:36→21:22)
[2021-01-19] MEDS: MethylPREDNISolone 40 MG/ML VIAL IVP SCH ×2 (08:37→15:12)
[2021-01-19] MEDS: Aspirin Enteric Coated 81 MG Tablet PO SCH (08:37)
[2021-01-19] MEDS: EXENATIDE 2 MG/0.85 ML SQ SCH (08:42)
[2021-01-19] MEDS ORDERED: amLODIPine 5 MG TABLET PO SCH (09:00)
[2021-01-19] MEDS: Budesonide/Formoterol 160/4.5 1 PUFF INH IH SCH ×2 (10:55→19:52)
[2021-01-19] MEDS: *HR* LORazepam 2 MG/ML VIAL IVP PRN (16:48)
[2021-01-19] MEDS ORDERED: *HR* Metoprolol 5 MG/5 ML VIAL IVP ONE ×3 (19:06→19:12)
[2021-01-19] MEDS: *HR* Metoprolol 5 MG/5 ML VIAL IVP PRN ×2 (19:20→19:30)
[2021-01-19] MEDS ORDERED: 0.9 % Sodium Chloride 500 ML IVC ONE (19:24)
[2021-01-19] MEDS ORDERED: 0.9 % Sodium Chloride 500 ML ONE (19:26)
[2021-01-19 19:39] LABS: Basophils % 0.2 %; Hematocrit 47.1 % (35.3-44.9); Hemoglobin 13.6 g/dL (11.5-15.4); Immature Granulocytes % 1.5 % (0-4); Lymphocytes # 0.1 K/mcL (0.6-4.6); Lymphocytes % 0.3 %; Mean Corpuscular HGB Conc 28.9 g/dL (31.6-35.5); Mean Corpuscular Hemoglobin 31.9 pg (28.0-33.3); Mean Corpuscular Volume 110.6 fL (83.0-100.0); Mean Platelet Volume 9.2 fL (9.4-12.4); Monocytes # 0.8 K/mcL (0.0-1.3); Monocytes % 5.1 %; Neutrophils # 13.9 K/mcL (1.6-8.9); Nucleated Red Blood Cells 0.5 /100 WBC (0); Platelet Count 233 K/mcL (140-400); Red Blood Count 4.26 M/mcL (3.82-4.97); Red Cell Distribution Width 19.4 % (11.5-14.5); Segmented Neutrophils % 92.9 %
[2021-01-19] MEDS ORDERED: Amiodarone Premix 360 MG/200 ML BAG IVC ONE (19:39)
[2021-01-19] MEDS ORDERED: *HR* Heparin 5,000 UNIT/ML VIAL IVP ONE (19:40)
[2021-01-19] MEDS ORDERED: *HR* Heparin 5,000 UNIT/ML VIAL IVP PRN ×2 (19:40)
[2021-01-19 19:58] LABS: Macrocytosis Present (Not Present); Platelet Estimate Normal (Normal)
[2021-01-19] MEDS: cefTRIAXone 1,000 MG in Water for inj. (sterile) 10 ML IVP SCH (20:03)
[2021-01-19 20:50] LABS: BUN/Creatinine Ratio 18 (6-26); Blood Urea Nitrogen 36 mg/dL (8-23); Calcium 8.2 mg/dL (8.6-10.3); Carbon Dioxide 23 mEq/L (23-29); Chloride 106 mEq/L (98-107); Glucose 194 mg/dL (70-105); Magnesium 2.3 mg/dL (1.6-2.6); Osmolality,Calculated 304 (280-300); Potassium 4.5 mEq/L (3.5-5.1); Sodium 140 mEq/L (136-145); eGFR For African Americans 30 (> 60); eGFR For Non-African Americans 25 (> 60)
[2021-01-19] MEDS: Heparin 25,000UNIT/250ML 1/2NS 25,000 UNIT/250 ML IV.SOLN IVC SCH (20:56)
[2021-01-19 23:08] LABS: Troponin I < 0.03 ng/mL (< 0.04)
[2021-01-19 23:22] LABS: Thyroid Stimulating Hormone 2.502 mcIU/mL (0.340-5.600)
[2021-01-20] MEDS: Insulin LISPRO 300 UNITS/3 ML VIAL SUBQ SCH ×4 (00:56→19:43)
[2021-01-20] MEDS: MethylPREDNISolone 40 MG/ML VIAL IVP SCH ×4 (00:56→23:27)
[2021-01-20] MEDS ORDERED: Amiodarone Premix 360 MG/200 ML BAG IVC SCH (01:39)
[2021-01-20 02:13] LABS: Basophils % 0.1 %; Eosinophils % 0.1 %; Hemoglobin 13.3 g/dL (11.5-15.4); Immature Granulocytes % 2.2 % (0-4); Lymphocytes # 0.3 K/mcL (0.6-4.6); Lymphocytes % 1.9 %; Mean Corpuscular HGB Conc 30.2 g/dL (31.6-35.5); Mean Corpuscular Hemoglobin 32.9 pg (28.0-33.3); Mean Corpuscular Volume 108.9 fL (83.0-100.0); Mean Platelet Volume 9.4 fL (9.4-12.4); Monocytes # 0.8 K/mcL (0.0-1.3); Monocytes % 5.8 %; Neutrophils # 12.9 K/mcL (1.6-8.9); Nucleated Red Blood Cells 0.4 /100 WBC (0); Platelet Count 249 K/mcL (140-400); Red Blood Count 4.04 M/mcL (3.82-4.97); Red Cell Distribution Width 19.2 % (11.5-14.5); Segmented Neutrophils % 89.9 %; White Blood Count 14.3 K/mcL (4.3-11.1)
[2021-01-20 02:31] LABS: Calcium 8.1 mg/dL (8.6-10.3); Magnesium 2.4 mg/dL (1.6-2.6); Phosphorous 3.7 mg/dL (2.7-4.5); Potassium 4.4 mEq/L (3.5-5.1)
[2021-01-20] MEDS: Ipratropium/Albuterol Neb 3 ML IH SCH ×6 (03:45→23:17)
[2021-01-20] MEDS: Acetylcysteine 10% 2 ML INHSOL IH SCH ×4 (03:46→19:54)
[2021-01-20] MEDS: Budesonide/Formoterol 160/4.5 1 PUFF INH IH SCH ×2 (07:22→19:54)
[2021-01-20] MEDS: Famotidine 20 MG TABLET PO SCH ×2 (08:31→20:30)
[2021-01-20] MEDS: Aspirin Enteric Coated 81 MG Tablet PO SCH (08:31)
[2021-01-20] MEDS: Azithromycin 500 MG in 0.9 % Sodium Chloride 250 ML IVPB SCH (11:00)
[2021-01-20] MEDS ORDERED: SODIUM CHLORIDE 0.9% IV SCH (12:00)
[2021-01-20] MEDS ORDERED: RITUXIMAB IV SCH (12:00)
[2021-01-20] MEDS: Nystatin POWDER 30 GM BOTTLE TP SCH ×3 (13:01→20:38)
[2021-01-20] MEDS: EXENATIDE 2 MG/0.85 ML SQ SCH (13:02)
[2021-01-20] MEDS: Apixaban 5 MG TABLET PO SCH ×2 (13:46→20:31)
[2021-01-20] MEDS: cefTRIAXone 1,000 MG in Water for inj. (sterile) 10 ML IVP SCH (19:15)
[2021-01-20 19:24] LABS: Uric Acid 15.9 mg/dL (2.3-7.6)
[2021-01-20] MEDS: Insulin DETEMIR 100 UNIT/ML X5UNITS SUBQ SCH (20:44)
[2021-01-21] MEDS: Insulin LISPRO 300 UNITS/3 ML VIAL SUBQ SCH ×4 (00:57→17:10)
[2021-01-21] MEDS ORDERED: *HR* Metoprolol 5 MG/5 ML VIAL IVP ONE (01:57)
[2021-01-21] MEDS: *HR* Metoprolol 5 MG/5 ML VIAL IVP PRN ×7 (02:01→06:26)
[2021-01-21] MEDS: DilTIAZem 50 MG/50 ML IV.SOLN IVC SCH ×2 (03:30→10:48)
[2021-01-21] MEDS: Acetylcysteine 10% 2 ML INHSOL IH SCH ×2 (03:36→07:19)
[2021-01-21] MEDS: Ipratropium/Albuterol Neb 3 ML IH SCH ×6 (03:36→23:53)
[2021-01-21 05:08] LABS: Basophils % 0.2 %; Hematocrit 44.7 % (35.3-44.9); Hemoglobin 13.7 g/dL (11.5-15.4); Lymphocytes # 0.1 K/mcL (0.6-4.6); Lymphocytes % 0.5 %; Mean Corpuscular HGB Conc 30.6 g/dL (31.6-35.5); Mean Corpuscular Hemoglobin 32.5 pg (28.0-33.3); Mean Corpuscular Volume 105.9 fL (83.0-100.0); Monocytes # 0.6 K/mcL (0.0-1.3); Monocytes % 3.5 %; Neutrophils # 15.9 K/mcL (1.6-8.9); Nucleated Red Blood Cells 0.4 /100 WBC (0); Platelet Count 262 K/mcL (140-400); Red Blood Count 4.22 M/mcL (3.82-4.97); Red Cell Distribution Width 18.6 % (11.5-14.5); Segmented Neutrophils % 94.8 %; White Blood Count 16.8 K/mcL (4.3-11.1)
[2021-01-21 05:26] LABS: Calcium 8.1 mg/dL (8.6-10.3); Magnesium 2.6 mg/dL (1.6-2.6); Phosphorous 4.3 mg/dL (2.7-4.5); Potassium 4.7 mEq/L (3.5-5.1)
[2021-01-21] MEDS: *HR* Metoprolol 5 MG/5 ML VIAL IVP SCH (07:07)
[2021-01-21] MEDS: Heparin 25,000UNIT/250ML 1/2NS 25,000 UNIT/250 ML IV.SOLN IVC SCH (07:12)
[2021-01-21] MEDS: Budesonide/Formoterol 160/4.5 1 PUFF INH IH SCH ×2 (07:19→19:47)
[2021-01-21] MEDS: EXENATIDE 2 MG/0.85 ML SQ SCH (07:54)
[2021-01-21] MEDS: Famotidine 20 MG TABLET PO SCH ×2 (07:56→20:40)
[2021-01-21] MEDS: Apixaban 5 MG TABLET PO SCH (07:56)
[2021-01-21] MEDS: Aspirin Enteric Coated 81 MG Tablet PO SCH (07:56)
[2021-01-21] MEDS: Nystatin POWDER 30 GM BOTTLE TP SCH ×3 (07:57→20:42)
[2021-01-21] MEDS: MethylPREDNISolone 40 MG/ML VIAL IVP SCH ×2 (07:57→17:10)
[2021-01-21] MEDS: Azithromycin 500 MG in 0.9 % Sodium Chloride 250 ML IVPB SCH (07:57)
[2021-01-21] MEDS: Albumin 25% 25gram/100mL 25 GM/100 ML IV.SOLN IVC SCH ×4 (10:06→14:07)
[2021-01-21] MEDS: DilTIAZem CD (24hr) 120 MG CAP.ER.24H PO SCH (10:10)
[2021-01-21] MEDS: cefTRIAXone 1,000 MG in Water for inj. (sterile) 10 ML IVP SCH (17:10)
[2021-01-21 18:35] LABS: Sodium, Urine 10.3 mEq/L
[2021-01-21] MEDS: Insulin DETEMIR 100 UNIT/ML X5UNITS SUBQ SCH (20:42)
[2021-01-21] MEDS: *HR* LORazepam 2 MG/ML VIAL IVP PRN (21:17)
[2021-01-22] MEDS: MethylPREDNISolone 40 MG/ML VIAL IVP SCH ×4 (01:14→23:51)
[2021-01-22] MEDS: Insulin LISPRO 300 UNITS/3 ML VIAL SUBQ SCH ×4 (01:16→16:57)
[2021-01-22] MEDS: Ipratropium/Albuterol Neb 3 ML IH SCH ×6 (04:06→23:46)
[2021-01-22 05:02] LABS: Basophils # 0.1 K/mcL (0.0-0.2); Basophils % 0.3 %; Hematocrit 47.1 % (35.3-44.9); Hemoglobin 14.1 g/dL (11.5-15.4); Immature Granulocytes % 1.8 % (0-4); Lymphocytes # 0.1 K/mcL (0.6-4.6); Lymphocytes % 0.5 %; Mean Corpuscular HGB Conc 29.9 g/dL (31.6-35.5); Mean Corpuscular Hemoglobin 32.4 pg (28.0-33.3); Mean Corpuscular Volume 108.3 fL (83.0-100.0); Mean Platelet Volume 9.8 fL (9.4-12.4); Monocytes # 0.8 K/mcL (0.0-1.3); Monocytes % 4.7 %; Nucleated Red Blood Cells 0.5 /100 WBC (0); Platelet Count 264 K/mcL (140-400); Red Blood Count 4.35 M/mcL (3.82-4.97); Red Cell Distribution Width 18.6 % (11.5-14.5); Segmented Neutrophils % 92.7 %; White Blood Count 17.3 K/mcL (4.3-11.1)
[2021-01-22 05:42] LABS: Magnesium 2.9 mg/dL (1.6-2.6); Phosphorous 7.6 mg/dL (2.7-4.5)
[2021-01-22] MEDS: Budesonide/Formoterol 160/4.5 1 PUFF INH IH SCH ×2 (07:32→20:11)
[2021-01-22] MEDS: Famotidine 20 MG TABLET PO SCH ×2 (07:42→20:50)
[2021-01-22] MEDS: Aspirin Enteric Coated 81 MG Tablet PO SCH (07:42)
[2021-01-22] MEDS: Azithromycin 500 MG in 0.9 % Sodium Chloride 250 ML IVPB SCH (07:42)
[2021-01-22] MEDS: Nystatin POWDER 30 GM BOTTLE TP SCH ×3 (07:43→20:53)
[2021-01-22] MEDS: DilTIAZem CD (24hr) 120 MG CAP.ER.24H PO SCH (07:43)
[2021-01-22] MEDS ORDERED: Lidocaine Viscous Oral Soln 15 ML SOLUTION ONE (07:58)
[2021-01-22] MEDS ORDERED: *HR* Midazolam HCl 5 MG/5 ML VIAL IVP ONE (08:15)
[2021-01-22] MEDS: *HR* Metoprolol 5 MG/5 ML VIAL IVP PRN ×5 (13:31→23:51)
[2021-01-22] MEDS: *HR* LORazepam 2 MG/ML VIAL IVP PRN (13:44)
[2021-01-22] MEDS ORDERED: DilTIAZem CD (24hr) 120 MG CAP.ER.24H PO ONE (14:49)
[2021-01-22] MEDS: cefTRIAXone 1,000 MG in Water for inj. (sterile) 10 ML IVP SCH (16:54)
[2021-01-22] MEDS: Metoclopramide 10 MG/2 ML VIAL IVP SCH ×2 (16:54→23:52)
[2021-01-22 18:29] LABS: Appearance of Body Fluid Clear (Clear); Volume of Body Fluid 21 mL
[2021-01-22] MEDS ORDERED: Ondansetron 4 MG/2 ML VIAL IVP ONE (20:35)
[2021-01-22] MEDS: Insulin DETEMIR 100 UNIT/ML X5UNITS SUBQ SCH (20:52)
[2021-01-22] MEDS: Apixaban 5 MG TABLET PO SCH (20:59)
[2021-01-23] MEDS: Insulin LISPRO 300 UNITS/3 ML VIAL SUBQ SCH ×5 (00:22→23:58)
[2021-01-23] MEDS: *HR* Metoprolol 5 MG/5 ML VIAL IVP PRN ×4 (00:22→22:46)
[2021-01-23 01:21] LABS: Basophils % 0.1 %; Hematocrit 46.5 % (35.3-44.9); Hemoglobin 13.9 g/dL (11.5-15.4); Immature Granulocytes % 1.4 % (0-4); Lymphocytes % 0.2 %; Mean Corpuscular HGB Conc 29.9 g/dL (31.6-35.5); Mean Corpuscular Hemoglobin 31.6 pg (28.0-33.3); Mean Corpuscular Volume 105.7 fL (83.0-100.0); Mean Platelet Volume 10.1 fL (9.4-12.4); Monocytes # 0.7 K/mcL (0.0-1.3); Monocytes % 4.4 %; Neutrophils # 13.9 K/mcL (1.6-8.9); Nucleated Red Blood Cells 0.5 /100 WBC (0); Platelet Count 229 K/mcL (140-400); Red Cell Distribution Width 18.2 % (11.5-14.5); Segmented Neutrophils % 93.9 %; White Blood Count 14.8 K/mcL (4.3-11.1)
[2021-01-23 01:35] LABS: Calcium 7.7 mg/dL (8.6-10.3); Magnesium 2.9 mg/dL (1.6-2.6); Phosphorous 7.1 mg/dL (2.7-4.5); Potassium 5.4 mEq/L (3.5-5.1)
[2021-01-23] MEDS ORDERED: 0.9 % Sodium Chloride 1,000 ML IVC ONE (02:55)
[2021-01-23] MEDS: Ipratropium/Albuterol Neb 3 ML IH SCH (04:07)
[2021-01-23] MEDS: Metoclopramide 10 MG/2 ML VIAL IVP SCH ×4 (04:46→23:56)
[2021-01-23] MEDS: Aspirin Enteric Coated 81 MG Tablet PO SCH (07:47)
[2021-01-23] MEDS: DilTIAZem CD (24hr) 240 MG CAP.ER.24H PO SCH (07:48)
[2021-01-23] MEDS: Famotidine 20 MG TABLET PO SCH ×2 (07:48→20:26)
[2021-01-23] MEDS: Azithromycin 500 MG in 0.9 % Sodium Chloride 250 ML IVPB SCH (07:49)
[2021-01-23] MEDS: Apixaban 5 MG TABLET PO SCH (07:49)
[2021-01-23] MEDS: MethylPREDNISolone 40 MG/ML VIAL IVP SCH ×2 (07:49→20:24)
[2021-01-23] MEDS: 0.9 % Sodium Chloride 1,000 ML IVC SCH ×2 (08:30→20:49)
[2021-01-23] MEDS: Nystatin POWDER 30 GM BOTTLE TP SCH ×3 (08:42→20:49)
[2021-01-23] MEDS: Budesonide/Formoterol 160/4.5 1 PUFF INH IH SCH ×2 (09:11→21:23)
[2021-01-23] MEDS: Levalbuterol Neb 1.25 MG/3 ML IH SCH ×3 (09:11→21:22)
[2021-01-23 10:03] LABS: Calcium 7.6 mg/dL (8.6-10.3); Phosphorous 7.4 mg/dL (2.7-4.5); Potassium 5.3 mEq/L (3.5-5.1)
[2021-01-23] MEDS ORDERED: *HR* Heparin 5,000 UNIT/ML VIAL IVP PRN ×3 (11:01→20:00)
[2021-01-23] MEDS ORDERED: *HR* Heparin 5,000 UNIT/ML VIAL IVP ONE (11:01)
[2021-01-23 12:49] LABS: Hematocrit 46.6 % (35.3-44.9); Hemoglobin 14.5 g/dL (11.5-15.4); Mean Corpuscular HGB Conc 31.1 g/dL (31.6-35.5); Mean Corpuscular Hemoglobin 32.4 pg (28.0-33.3); Mean Corpuscular Volume 104.3 fL (83.0-100.0); Mean Platelet Volume 9.9 fL (9.4-12.4); Platelet Count 223 K/mcL (140-400); Red Blood Count 4.47 M/mcL (3.82-4.97); Red Cell Distribution Width 18.2 % (11.5-14.5); White Blood Count 13.5 K/mcL (4.3-11.1)
[2021-01-23 12:56] LABS: INR 1.3; Prothrombin Time 15.4 Seconds (9.4-12.1)
[2021-01-23 13:02] LABS: Heparin anti-factor XA UFH > 2.00 IU/mL (0.30-0.70)
[2021-01-23] MEDS: cefTRIAXone 1,000 MG in Water for inj. (sterile) 10 ML IVP SCH (17:55)
[2021-01-23] MEDS: Insulin DETEMIR 100 UNIT/ML X5UNITS SUBQ SCH (20:24)
[2021-01-23] MEDS: Heparin 25,000UNIT/250ML 1/2NS 25,000 UNIT/250 ML IV.SOLN IVC SCH (20:29)
[2021-01-24] MEDS ORDERED: Chloraseptic Spray 177 ML BOTTLE MM PRN (01:40)
[2021-01-24 02:13] LABS: Calcium 7.3 mg/dL (8.6-10.3); Magnesium 2.9 mg/dL (1.6-2.6); Phosphorous 7.7 mg/dL (2.7-4.5); Potassium 5.6 mEq/L (3.5-5.1)
[2021-01-24] MEDS: Levalbuterol Neb 1.25 MG/3 ML IH SCH ×4 (03:41→22:21)
[2021-01-24] MEDS: Insulin LISPRO 300 UNITS/3 ML VIAL SUBQ SCH ×3 (05:15→18:49)
[2021-01-24] MEDS: Metoclopramide 10 MG/2 ML VIAL IVP SCH ×2 (05:16→13:07)
[2021-01-24] MEDS: *HR* Metoprolol 5 MG/5 ML VIAL IVP PRN ×4 (05:16→11:20)
[2021-01-24] MEDS: *HR* LORazepam 2 MG/ML VIAL IVP PRN ×2 (05:56→11:04)
[2021-01-24 06:06] LABS: Basophils # 0.1 K/mcL (0.0-0.2); Basophils % 0.5 %; Hematocrit 49.1 % (35.3-44.9); Hemoglobin 14.7 g/dL (11.5-15.4); Immature Granulocytes % 2.5 % (0-4); Lymphocytes # 0.1 K/mcL (0.6-4.6); Lymphocytes % 0.6 %; Mean Corpuscular HGB Conc 29.9 g/dL (31.6-35.5); Mean Corpuscular Hemoglobin 31.7 pg (28.0-33.3); Mean Platelet Volume 10.2 fL (9.4-12.4); Monocytes % 5.5 %; Neutrophils # 17.1 K/mcL (1.6-8.9); Nucleated Red Blood Cells 0.7 /100 WBC (0); Platelet Count 268 K/mcL (140-400); Red Blood Count 4.63 M/mcL (3.82-4.97); Red Cell Distribution Width 18.1 % (11.5-14.5); Segmented Neutrophils % 90.9 %; White Blood Count 18.8 K/mcL (4.3-11.1)
[2021-01-24 06:30] LABS: Platelet Estimate Normal (Normal)
[2021-01-24 06:31] LABS: Large Platelets Present (Not Present); Polychromasia 1+ (Not Present)
[2021-01-24 06:32] LABS: Reactive Lymphocytes Present (Not Present)
[2021-01-24 06:52] LABS: Calcium 7.3 mg/dL (8.6-10.3); Magnesium 2.9 mg/dL (1.6-2.6); Phosphorous 8.5 mg/dL (2.7-4.5); Potassium 5.4 mEq/L (3.5-5.1)
[2021-01-24] MEDS: DilTIAZem CD (24hr) 240 MG CAP.ER.24H PO SCH (07:47)
[2021-01-24] MEDS: Famotidine 20 MG TABLET PO SCH ×2 (07:47→20:00)
[2021-01-24] MEDS: Aspirin Enteric Coated 81 MG Tablet PO SCH (07:47)
[2021-01-24] MEDS: Azithromycin 500 MG in 0.9 % Sodium Chloride 250 ML IVPB SCH (07:48)
[2021-01-24] MEDS: MethylPREDNISolone 40 MG/ML VIAL IVP SCH (07:48)
[2021-01-24] MEDS ORDERED: 0.9 % Sodium Chloride 250 ML IVC PRN (07:55)
[2021-01-24] MEDS ORDERED: *HR* Heparin 10,000 UNIT/10 ML VIAL IV PRN ×2 (07:55)
[2021-01-24] MEDS ORDERED: 0.9 % Sodium Chloride 1,000 ML PRIME SCH (08:00)
[2021-01-24] MEDS: Nystatin POWDER 30 GM BOTTLE TP SCH ×3 (08:03→20:01)
[2021-01-24] MEDS: Budesonide/Formoterol 160/4.5 1 PUFF INH IH SCH ×2 (09:43→22:21)
[2021-01-24 11:18] LABS: Hepatitis B Surface Antibody < 3.10 mIU/mL
[2021-01-24] MEDS ORDERED: *HR* LORazepam 2 MG/ML VIAL IVP ONE ×2 (11:19→11:53)
[2021-01-24] MEDS ORDERED: *HR* Heparin 5,000 UNIT/ML VIAL IVP PRN ×2 (11:22)
[2021-01-24 11:29] LABS: Hepatitis B Surface Antigen Nonreactive (Nonreactive)
[2021-01-24] MEDS ORDERED: Heparin 25,000UNIT/250ML 1/2NS 25,000 UNIT/250 ML IV.SOLN IVC SCH (11:30)
[2021-01-24] MEDS ORDERED: Amiodarone Premix 360 MG/200 ML BAG IVC ONE ×2 (12:00→15:55)
[2021-01-24] MEDS ORDERED: Isovue-370 500 ML BOTTLE IVP ONE (12:15)
[2021-01-24 12:22] LABS: Hemoglobin 14.6 g/dL (11.5-15.4); Mean Corpuscular HGB Conc 29.8 g/dL (31.6-35.5); Mean Corpuscular Hemoglobin 31.5 pg (28.0-33.3); Mean Corpuscular Volume 105.8 fL (83.0-100.0); Mean Platelet Volume 10.5 fL (9.4-12.4); Platelet Count 241 K/mcL (140-400); Red Blood Count 4.63 M/mcL (3.82-4.97); White Blood Count 21.3 K/mcL (4.3-11.1)
[2021-01-24] MEDS: Heparin 25,000UNIT/250ML 1/2NS 25,000 UNIT/250 ML IV.SOLN IVC SCH (13:06)
[2021-01-24] MEDS ORDERED: Heparin 1,000 UNITS/500 mL 500 ML ONE (13:57)
[2021-01-24] MEDS ORDERED: *HR* Heparin 5,000 UNIT/ML VIAL ONE (14:27)
[2021-01-24] MEDS ORDERED: Amiodarone Premix 150 MG/100 ML BAG IVPB ONE (15:55)
[2021-01-24] MEDS ORDERED: *HR* Digoxin 0.5 MG/2 ML AMPUL IVP ONE (16:26)
[2021-01-24] MEDS: Piperacillin/Tazobactam 3.375 GM in 0.9 % Sodium Chloride Mini Bag 100 ML IVPB SCH (19:03)
[2021-01-24] MEDS: DilTIAZem 50 MG/50 ML IV.SOLN IVC SCH (19:33)
[2021-01-24] MEDS: Metoprolol 100 MG TABLET PO SCH (20:00)
[2021-01-24] MEDS: Insulin DETEMIR 100 UNIT/ML X5UNITS SUBQ SCH (20:01)
[2021-01-24] MEDS ORDERED: Lidocaine/EPI 1:100k 1% 20 ML VIAL INFILT ONE (21:12)
[2021-01-24 21:17] LABS: Hematocrit 46.3 % (35.3-44.9); Hemoglobin 13.9 g/dL (11.5-15.4)
[2021-01-24 21:26] LABS: INR 1.3; Prothrombin Time 14.6 Seconds (9.4-12.1)
[2021-01-24 21:48] LABS: Activated Partial Thrombo Time 211.4 Seconds (26.0-36.0)
[2021-01-24] MEDS ORDERED: *HR* Digoxin 0.5 MG/2 ML AMPUL IVP SCH (23:00)
[2021-01-25] MEDS: DilTIAZem 50 MG/50 ML IV.SOLN IVC SCH (00:41)
[2021-01-25] MEDS: Insulin LISPRO 300 UNITS/3 ML VIAL SUBQ SCH ×2 (00:42→06:58)
[2021-01-25 03:07] LABS: Influenza A PCR Body Fluid NOT DETECTED; Influenza B PCR Body Fluid NOT DETECTED; RVP Body Fluid Source BAL
[2021-01-25] MEDS: Levalbuterol Neb 1.25 MG/3 ML IH SCH ×4 (03:33→22:44)
[2021-01-25] MEDS: Heparin 25,000UNIT/250ML 1/2NS 25,000 UNIT/250 ML IV.SOLN IVC SCH (05:20)
[2021-01-25] MEDS ORDERED: Metoclopramide 10 MG/2 ML VIAL IVP SCH ×2 (06:00→18:00)
[2021-01-25 06:07] LABS: Basophils % 0.2 %; Hematocrit 41.7 % (35.3-44.9); Hemoglobin 12.8 g/dL (11.5-15.4); Lymphocytes # 0.1 K/mcL (0.6-4.6); Lymphocytes % 0.6 %; Mean Corpuscular HGB Conc 30.7 g/dL (31.6-35.5); Mean Corpuscular Hemoglobin 31.9 pg (28.0-33.3); Mean Platelet Volume 10.8 fL (9.4-12.4); Monocytes % 6.8 %; Neutrophils # 12.8 K/mcL (1.6-8.9); Nucleated Red Blood Cells 0.2 /100 WBC (0); Platelet Count 155 K/mcL (140-400); Red Blood Count 4.01 M/mcL (3.82-4.97); Red Cell Distribution Width 17.2 % (11.5-14.5); Segmented Neutrophils % 91.4 %
[2021-01-25 06:25] LABS: Calcium 7.2 mg/dL (8.6-10.3); Magnesium 2.7 mg/dL (1.6-2.6); Potassium 6.3 mEq/L (3.5-5.1)
[2021-01-25 06:31] LABS: Anisocytosis 1+ (Not Present); Macrocytosis Present (Not Present); Platelet Estimate Normal (Normal)
[2021-01-25] MEDS: Piperacillin/Tazobactam 3.375 GM in 0.9 % Sodium Chloride Mini Bag 100 ML IVPB SCH (06:59)
[2021-01-25] MEDS ORDERED: Insulin Human Regular 10 UNIT in 0.9 % Sodium Chloride 10 ML IV ONE (07:13)
[2021-01-25] MEDS ORDERED: 0.9 % Sodium Chloride 250 ML IVC PRN ×2 (07:14→13:27)
[2021-01-25] MEDS ORDERED: *HR* Dextrose 50 % in Water (Vial) 50 ML VIAL IVP ONE (07:30)
[2021-01-25] MEDS: Calcium Gluconate 1gm/50mL 1 GM/50 ML BAG IVPB SCH ×4 (07:55→16:47)
[2021-01-25] MEDS: Nystatin POWDER 30 GM BOTTLE TP SCH ×3 (07:56→20:36)
[2021-01-25] MEDS: Famotidine 20 MG TABLET PO SCH (07:56)
[2021-01-25] MEDS: Metoprolol 100 MG TABLET PO SCH (07:56)
[2021-01-25] MEDS: DilTIAZem CD (24hr) 240 MG CAP.ER.24H PO SCH (07:56)
[2021-01-25] MEDS: Aspirin Enteric Coated 81 MG Tablet PO SCH (07:56)
[2021-01-25] MEDS ORDERED: MethylPREDNISolone 40 MG/ML VIAL IVP SCH (09:00)
[2021-01-25] MEDS ORDERED: *HR* Metoprolol 5 MG/5 ML VIAL IVP PRN ×3 (09:04→13:27)
[2021-01-25] MEDS: Budesonide/Formoterol 160/4.5 1 PUFF INH IH SCH (09:33)
[2021-01-25 11:48] LABS: RSV PCR Body Fluid NOT DETECTED
[2021-01-25] MEDS: *HR* LORazepam 2 MG/ML VIAL IVP PRN (12:30)
[2021-01-25] MEDS ORDERED: 0.9 % Sodium Chloride 1,000 ML PRIME SCH (13:27)
[2021-01-25] MEDS ORDERED: D5% in Water 1,000 ML IVC PRN (13:27)
[2021-01-25] MEDS ORDERED: Lidocaine/EPI 1:100k 1% 20 ML VIAL INFILT ONE (13:27)
[2021-01-25] MEDS ORDERED: Dextrose Gel 15 GM/37.5 ML TUBE PO PRN ×2 (13:27)
[2021-01-25] MEDS ORDERED: Chloraseptic Spray 177 ML BOTTLE MM PRN (13:27)
[2021-01-25] MEDS ORDERED: *HR* LORazepam 2 MG/ML VIAL IVP PRN (13:27)
[2021-01-25] MEDS ORDERED: *HR* Dextrose 50 % in Water (Vial) 50 ML VIAL IVP PRN (13:27)
[2021-01-25] MEDS ORDERED: Naloxone 0.4 MG/ML INJ IVP PRN (13:27)
[2021-01-25] MEDS ORDERED: Perflutren Lipid Microsphere 1.3 ML in 0.9 % Sodium Chloride 8.7 ML IVP PRN (13:27)
[2021-01-25] MEDS ORDERED: Fluconazole 200 MG/100 ML 100 MG/50 ML BAG IVPB SCH (13:45)
[2021-01-25] MEDS ORDERED: DESMOPRESSIN ACETATE IVPB ONE (13:51)
[2021-01-25] MEDS ORDERED: SODIUM CHLORIDE 0.9% IVPB ONE (13:51)
[2021-01-25] MEDS: Dexmedetomidine HCl 400 MCG/100 ML MLS IVC SCH ×2 (14:04→23:14)
[2021-01-25] MEDS: Pantoprazole 40 MG VIAL IVP SCH ×3 (14:20→17:14)
[2021-01-25 14:28] LABS: VBG Ionized Calcium 0.98 mmol/L (1.15-1.35)
[2021-01-25 14:28] LABS: Hematocrit 39.1 % (35.3-44.9); Hemoglobin 11.9 g/dL (11.5-15.4)
[2021-01-25] MEDS: Nystatin SUSP 5 ML UD.LIQ PO SCH ×3 (14:39→20:37)
[2021-01-25] MEDS: methylPREDNISolone 125 MG/2 ML VIAL IVP SCH ×2 (14:39→22:29)
[2021-01-25 15:17] LABS: Calcium 7.6 mg/dL (8.6-10.3); Magnesium 2.2 mg/dL (1.6-2.6); Potassium 4.2 mEq/L (3.5-5.1)
[2021-01-25] MEDS ORDERED: Insulin LISPRO 300 UNITS/3 ML VIAL SUBQ SCH (18:00)
[2021-01-25] MEDS ORDERED: Piperacillin/Tazobactam 3.375 GM in 0.9 % Sodium Chloride Mini Bag 100 ML IVPB SCH (18:00)
[2021-01-25] MEDS ORDERED: Calcium Gluconate 1gm/50mL 1 GM/50 ML BAG IVPB ONE (18:33)
[2021-01-25 20:16] LABS: Hematocrit 35.4 % (35.3-44.9); Hemoglobin 10.8 g/dL (11.5-15.4)
[2021-01-25] MEDS ORDERED: Insulin DETEMIR 100 UNIT/ML X5UNITS SUBQ SCH (21:00)
[2021-01-25] MEDS ORDERED: Metoprolol 100 MG TABLET PO SCH (21:00)
[2021-01-25] MEDS ORDERED: Famotidine 20 MG TABLET PO SCH (21:00)
[2021-01-25] MEDS ORDERED: Budesonide/Formoterol 160/4.5 1 PUFF INH IH SCH (22:00)
[2021-01-25 23:14] VITALS: BP 104/59
[2021-01-25] MEDS ORDERED: Acetaminophen IV 1,000 MG/100 ML BAG IVPB SCH (23:45)
[2021-01-25] MEDS ORDERED: Phenylephrine 10 MG in 0.9 % Sodium Chloride 250 ML IVC SCH (23:45)
[2021-01-25] MEDS ORDERED: Acetaminophen IV 1,000 MG/100 ML BAG IVPB ONE (23:54)
[2021-01-26] MEDS: Levalbuterol Neb 1.25 MG/3 ML IH SCH (03:56)
[2021-01-26] MEDS ORDERED: MethylPREDNISolone 40 MG/ML VIAL IVP SCH (09:00)
[2021-01-26] MEDS ORDERED: Aspirin Enteric Coated 81 MG Tablet PO SCH (09:00)
[2021-01-26] MEDS ORDERED: DilTIAZem CD (24hr) 240 MG CAP.ER.24H PO SCH (09:00)
== END 2021-01-26 00:20 | disposition short-term general hospital (02) | DRG 207 ==
LOC: 2NNU 16:47 → EMEROOARM 16:47 → SUATTDRO 21:02 → OBSVTOIN 21:02 → 2NNU 21:25 → ICNU 01-25 14:02
PROVIDERS: ADMIT Student in an Organized Health Care Education/Training Program; ATTEND Internal Medicine